=== PATIENT | male | born 1945 | race Caucasian/White ===

== ENCOUNTER 2021-08-03 16:23 | Inpatient (IN) ==
[2021-08-03] MEDS: SODIUM CHLORIDE 0.9% 1000ML 1,000 ML IV SCH (17:04)
[2021-08-03 17:23] LABS: INR 1.8 (0.9-1.1); Prothrombin Time 18.3 Seconds (9.0-12.0)
[2021-08-03 17:29] LABS: Basophils # (auto) 0.02 K/uL (0-0.2); Basophils % (auto) 0.4 %; Eosinophils # (auto) 0.12 K/uL (0-0.5); Eosinophils % (auto) 2.2 %; Hematocrit (blood only) 39.7 % (42-52); Hemoglobin 13.2 g/dL (14.0-18.0); Immature Granulocytes # (auto) 0.01 K/uL (0.00-0.02); Immature Granulocytes % (auto) 0.2 %; Lymphocytes # (auto) 1.27 K/uL (1.2-3.4); Lymphocytes % (auto) 22.9 %; Mean Corpuscular Hemoglobin 29.4 pg (25-34); Mean Corpuscular Hgb Conc 33.2 g/dL (32-36); Mean Corpuscular Volume 88.4 fL (80-100); Mean Platelet Volume 12.7 fL (7.4-10.4); Monocytes # (auto) 0.79 K/uL (0.11-0.59); Monocytes % (auto) 14.3 %; Neutrophils # (auto) 3.33 K/uL (1.4-6.5); Platelet Count 180 K/uL (130-400); RDW Coefficient of Variation 15.8 % (11.5-14.5); RDW Standard Deviation 51.1 fL (36.4-46.3); Red Blood Count 4.49 M/uL (4.7-6.1); White Blood Count 5.54 K/uL (4.8-10.8)
[2021-08-03 17:42] LABS: Troponin I High Sensitivity 10.6 pg/ml (0-20)
[2021-08-03 17:50] LABS: Albumin Globulin Ratio 1.5 (0.9-2); Albumin Level 4.5 gm/dl (3.4-5.0); BUN Creatinine Ratio 17.7 (10-20); Bilirubin,Total 0.6 mg/dl (0.2-1.0); Calcium 9.6 mg/dl (8.5-10.1); Est GFR (African American) 72.3 ml/min; Est GFR (Non-African American) 62.4 ml/min; Magnesium 1.3 mg/dl (1.7-2.4); Potassium 3.6 mmol/L (3.5-5.1); Total Protein 7.5 gm/dl (6.0-8.3)
[2021-08-03 18:23] LABS: Thyroid Stimulating Hormone 9.69 uIu/ml (0.300-4.500)
--- NOTE | 2021-08-03 18:23 | Emergency Department Note ---
History of Present Illness General Chief complaint: Fall Stated complaint: FALL, DIZZINESS, REF BY Time Seen by Provider: 08/03/21 16:38 Source: patient and family Mode of arrival: ambulatory Limitations: no limitations History of Present Illness Provider complaint: Dizziness, recurrent falls Maximum Pain Intensity: 8 This is a 75-year-old male presents emergency department complaining of dizziness recurrent falls, as well as recent head trauma. Patient states he sustained a fall 3 weeks ago while fishing and struck the back of his head on a rock. He is uncertain if he lost consciousness. Patient states since then he has felt more unsteady and off balance, and had accompanying headaches, frequent dizzy spells, and back pain. Patient states he does have a history of chronic back pain although it has been worse since the fall. He is followed least twice in the interim, has not sustained any further head trauma. He states ever since a fall with head injury 3 years ago he has been more chronically off balance. Patient states he does take Coumadin and his last INR was 2.8. He denies any recent change in medications or recent illness. Patient denies fevers, chills, vision changes, nausea, vomiting. Patient states he does have intermittent palpitations/fluttering in his chest and he has noticed that these seem to correlate with the episodes of dizziness. Per family at bedside he does have a history of dysrhythmia and does follow with cardiology. Patient denies any change in urine or stools. He denies any paresthesias. Patient states he has chronic right ankle swelling compared to the left from an injury many years ago. Pt seen during a time of high acuity and national emergency pandemic while wearing PPE. Home Medications Medication Instructions Recorded Confirmed Type acetaminophen 500 mg tablet 1,000 mg PO Q6H PRN tab 07/07/20 08/03/21 History albuterol sulfate 90 mcg/actuation 2 puff INHALATION Q6H PRN 07/07/20 08/03/21 History aerosol inhaler desonide 0.05 % topical cream 1 applic TOPICAL BID 07/07/20 08/03/21 History levothyroxine 50 mcg tablet 50 mcg PO QAM tab 07/07/20 08/03/21 History nitroglycerin 0.4 mg sublingual 0.4 mg SUBLINGUAL Q5M PRN 07/07/20 08/03/21 History tablet magnesium chloride 64 mg 64 mg PO BID tab 07/14/20 08/03/21 History (magnesium chloride) tablet,delayed release colchicine 0.6 mg capsule 0.6 mg PO BID PRN 09/01/20 08/03/21 History amiodarone 200 mg tablet 200 mg PO DAILY #90 tab 09/02/20 08/03/21 Rx lisinopril 10 mg tablet 10 mg PO DAILY #90 tab 11/24/20 08/03/21 Rx metoprolol succinate 100 mg 100 mg PO DAILY #90 tab 11/24/20 08/03/21 Rx tablet,extended release 24 hr metformin 1,000 mg tablet 1,000 mg PO BIDM #180 tab 02/17/21 08/03/21 Rx atorvastatin 40 mg tablet 40 mg PO DAILY #90 tab 05/19/21 08/03/21 Rx omeprazole 20 mg capsule,delayed 20 mg PO QAM #90 cap 05/19/21 08/03/21 Rx release triamterene 37.5 1 cap PO DAILY #90 cap 05/19/21 08/03/21 Rx mg-hydrochlorothiazide 25 mg capsule warfarin 5 mg tablet 5 mg PO QPM 08/03/21 08/03/21 History Allergies Allergy/AdvReac Type Severity Reaction Status Date / Time tramadol Allergy Mild ANAPHYLAXIS Verified 08/03/21 18:47 Penicillins Allergy Unknown CAN'T Verified 08/03/21 18:47 REMEMBER niacin AdvReac Rash, Verified 08/03/21 18:47 Itching TETANUS Allergy Mild ANAPHYLAXIS Uncoded 08/03/21 18:47 Past Med/Surg History Medical History Acquired hypothyroidism Cardiomyopathy Dyslipidemia, goal LDL below 100 GERD without esophagitis HTN, goal below 140/90 senior care current use of anticoagulant therapy Paroxysmal atrial fibrillation Rheumatic aortic stenosis SBE (subacute bacterial endocarditis) prophylaxis candidate Type 2 diabetes mellitus Surgical History History of cardiac catheterization History of colonoscopy History of hand surgery History of nasal septoplasty S/P aortic valve replacement S/P tonsillectomy and adenoidectomy Family History Sister Cancer lymphoma Father Heart disease Hypertension Mother Heart disease Hypertension Brother Myocardial infarction Stroke Other No family history of adverse response to anesthesia No family history of bleeding disorder Social History Smoking Status: Former smoker Tobacco Type: Cigarettes and Smokeless Tobacco (Dip or Chew) Age Started Using Tobacco: 10; packs per day: 2; Years Smoked: 30; Second Hand Exposure: No; Do You Dip or Chew Tobacco: No; Tobacco Cessation Education Requested by Patient: No Hx Alcohol Use: No Hx Substance Use: No Preferred Language: Maori Communication Ability: Effective Termite Treater Helper Required: No Beliefs That Will Affect Care: None Current Living Situation: Alone Other Information That Helps Us Care for You: No Feels Safe at Home: Yes Safety Concerns: Feels Safe At This Time Seatbelt Use: always Assistive Devices: Cane Assistive Devices Comment: Reading Review of Systems A total of 10 systems reviewed and were otherwise negative All systems reviewed & are unremarkable except as noted in HPI & below Physical Exam Vital Signs Vital Signs - 24 hr 08/03/21 16:26 08/03/21 17:00 08/03/21 17:30 Temperature 36.6 C Temperature Source Temporal Artery Scan Pulse Rate 69 68 60 Respiratory Rate 20 19 20 Respiratory Effort / Characteristics Non-Labored Spontaneous Respiratory Depth Normal Respiratory Pattern Regular Blood Pressure 154/79 H 142/70 H 158/69 H Blood Pressure Mean 104 94 98 Pulse Oximetry 96 96 96 Oxygen Delivery Method Room Air Sepsis Recent Fever Within 48 Hours No Sepsis New/Unexplained Change in Mental Status No Sepsis Action Taken by Nursing No Action Required 08/03/21 18:00 Temperature Temperature Source Pulse Rate 55 L Respiratory Rate 20 Respiratory Effort / Characteristics Respiratory Depth Respiratory Pattern Blood Pressure 174/82 H Blood Pressure Mean 112 Pulse Oximetry 97 Oxygen Delivery Method Sepsis Recent Fever Within 48 Hours Sepsis New/Unexplained Change in Mental Status Sepsis Action Taken by Nursing GENERAL: alert, well appearing, well nourished, no distress, non-toxic EYE EXAM: normal conjunctiva, PERRL and EOM's grossly intact OROPHARYNX: no exudate, no erythema, lips, buccal mucosa, and tongue normal and mucous membranes are moist NECK: supple, no nuchal rigidity, no adenopathy, non-tender LUNGS: Clear to auscultation. Normal chest wall mechanics, no w/r/r HEART: no murmurs, S1 normal and S2 normal CHEST WALL: No crepitus, no chest wall tender ABDOMEN: abdomen soft, non-tender, normo-active bowel sounds, no masses, no rebound or guarding. BACK: Back is symmetrical on inspection and there is no deformity, lower lumbar midline tenderness, no CVA tenderness. Pain with palpation over right paraspinal thoracic region. No overlying ecchymosis or evidence of trauma. SKIN: no rashes and no bruising UPPER EXTREMITIES: upper extremities are grossly normal. FROM, nml pulses b/l. LOWER EXTREMITIES: No pitting edema. FROM, nml pulses b/l. NEURO EXAM: Normal sensorium, cranial nerves II-XII grossly intact, normal speech, no gross weakness of arms, no gross weakness of legs. Gross sensation intact. Course Course 1914: Updated patient and family on results. Administered Medications Acetaminophen (Acetaminophen 325 Mg Tab) 650 mg PO Q4H PRN PRN Reason: Pain or Fever Stop: 09/02/21 22:28 Last Admin: 08/05/21 13:45 Dose: 650 mg Documented by: [id number] Admin: 08/05/21 08:40 Dose: 650 mg Documented by: [id number] Admin: 08/04/21 13:20 Dose: 650 mg Documented by: [id number] Admin: 08/04/21 08:45 Dose: 650 mg Documented by: [id number] Admin: 08/04/21 03:16 Dose: 650 mg Documented by: [id number] Amiodarone HCl (Amiodarone 200 Mg Tab) 200 mg PO DAILY ION Stop: 09/03/21 08:59 Last Admin: 08/05/21 08:09 Dose: 200 mg Documented by: [id number] Admin: 08/04/21 08:44 Dose: 200 mg Documented by: [id number] Atorvastatin Calcium (Atorvastatin 40 Mg Tab) 40 mg PO DAILY ION Stop: 09/03/21 08:59 Last Admin: 08/05/21 08:09 Dose: 40 mg Documented by: [id number] Admin: 08/04/21 08:44 Dose: 40 mg Documented by: [id number] Colchicine (Colchicine 0.6 Mg Tab) 0.6 mg PO BID PRN PRN Reason: GOUT SYMPTOMS Stop: 09/02/21 23:45 Last Admin: 08/05/21 08:09 Dose: 0.6 mg Documented by: [id number] Admin: 08/04/21 08:44 Dose: 0.6 mg Documented by: [id number] Insulin Aspart (Insulin Aspart Per Unit) 0 units SC ACHS ION Stop: 09/02/21 22:28 Last Admin: 08/05/21 17:14 Dose: Not Given Documented by: [id number] Admin: 08/05/21 11:38 Dose: Not Given Documented by: [id number] Admin: 08/05/21 07:20 Dose: Not Given Documented by: [id number] Admin: 08/04/21 20:53 Dose: Not Given Documented by: [id number] Admin: 08/04/21 16:30 Dose: Not Given Documented by: [id number] Admin: 08/04/21 11:31 Dose: Not Given Documented by: [id number] Admin: 08/04/21 08:05 Dose: Not Given Documented by: [id number] Admin: 08/03/21 23:37 Dose: Not Given Documented by: [id number] Cosigned by: [id number] Levothyroxine Sodium (Levothyroxine Sodium 50 Mcg Tablet) 50 mcg PO DAILYBB ION Stop: 09/03/21 06:29 Last Admin: 08/05/21 05:49 Dose: 50 mcg Documented by: [id number] Admin: 08/04/21 05:46 Dose: 50 mcg Documented by: [id number] Lidocaine (Lidocaine 5% 1 Patch) 1 patch TD QPM ION Stop: 09/02/21 23:44 Last Admin: 08/04/21 20:21 Dose: 1 patch Documented by: [id number] Admin: 08/03/21 23:59 Dose: 1 patch Documented by: [id number] Lisinopril (Lisinopril 10 Mg Tab) 10 mg PO DAILY ION Stop: 09/03/21 08:59 Last Admin: 08/05/21 08:09 Dose: 10 mg Documented by: [id number] Admin: 08/04/21 08:44 Dose: 10 mg Documented by: [id number] Magnesium Chloride (Magnesium Chloride W/Calcium 64mg Delayed Rel Tab) 64 mg PO BID ION Stop: 09/02/21 22:28 Last Admin: 08/05/21 08:09 Dose: 64 mg Documented by: [id number] Admin: 08/04/21 20:22 Dose: 64 mg Documented by: [id number] Admin: 08/04/21 08:44 Dose: 64 mg Documented by: [id number] Admin: 08/03/21 23:30 Dose: 64 mg Documented by: [id number] Metoprolol Succinate (Metoprolol Succ 50mg Ext Rel Tab) 50 mg PO DAILY [facility] Stop: 09/03/21 08:59 Last Admin: 08/05/21 08:12 Dose: Not Given Documented by: [id number] Admin: 08/04/21 08:44 Dose: Not Given Documented by: [id number] Miscellaneous (Remove Lidoderm Patch) 1 ea N/A DAILY@0900 [facility] Stop: 09/03/21 08:59 Last Admin: 08/05/21 08:15 Dose: 1 ea Documented by: [id number] Admin: 08/04/21 08:46 Dose: 1 ea Documented by: [id number] Warfarin Sodium (Warfarin Sod 5 Mg Tab) 5 mg PO DAILY@1600 [facility] Stop: 09/03/21 15:59 Last Admin: 08/05/21 16:35 Dose: 5 mg Documented by: [id number] Admin: 08/04/21 16:34 Dose: 5 mg Documented by: [id number] Discontinued Medications Amlodipine Besylate (Amlodipine Besylate 5 Mg Tab) 10 mg PO NOW ONE Stop: 08/05/21 11:15 Last Admin: 08/05/21 11:26 Dose: 10 mg Documented by: [id number] Sodium Chloride (Nss 1000ml) 1,000 mls @ 125 mls/hr IV .Q8H [facility] Stop: 09/02/21 16:59 Last Infusion: 08/05/21 08:33 Dose: 0 mls/hr Documented by: [id number] Admin: 08/05/21 08:11 Dose: 125 mls/hr Documented by: [id number] Infusion: 08/05/21 08:11 Dose: 125 mls/hr Documented by: [id number] Admin: 08/05/21 00:42 Dose: 125 mls/hr Documented by: [id number] Infusion: 08/05/21 00:34 Dose: 125 mls/hr Documented by: [id number] Admin: 08/04/21 16:34 Dose: 125 mls/hr Documented by: [id number] Infusion: 08/04/21 16:34 Dose: 125 mls/hr Documented by: [id number] Admin: 08/04/21 08:44 Dose: 125 mls/hr Documented by: [id number] Infusion: 08/04/21 08:44 Dose: 125 mls/hr Documented by: [id number] Admin: 08/04/21 01:17 Dose: 125 mls/hr Documented by: [id number] Infusion: 08/04/21 01:04 Dose: 125 mls/hr Documented by: [id number] Admin: 08/03/21 17:04 Dose: 125 mls/hr Documented by: [id number] Magnesium Sulfate/Dextrose (Magnesium Sulfate / D5w) 1 gm in 100 mls @ 100 mls/hr IV Q1H ION Stop: 08/03/21 19:53 Last Infusion: 08/03/21 22:50 Dose: 0 mls/hr Documented by: [id number] Admin: 08/03/21 20:21 Dose: 100 mls/hr Documented by: [id number] Infusion: 08/03/21 19:59 Dose: 0 mls/hr Documented by: [id number] Admin: 08/03/21 18:49 Dose: 100 mls/hr Documented by: [id number] Ioversol (Optiray 320 100ml) 93 ml IV ONCE ONE Stop: 08/03/21 18:25 Last Admin: 08/03/21 18:25 Dose: 93 ml Documented by: [id number] Warfarin Sodium (Warfarin Sod 5 Mg Tab) 5 mg PO NOW ONE Stop: 08/03/21 20:56 Last Admin: 08/03/21 22:38 Dose: 5 mg Documented by: [id number] Medical Decision Making Differential Diagnosis Differential diagnosis includes etiologies such as benign positional vertigo, dehydration, hypovolemia, anemia, tumor, infection, hypoglycemia, electrolyte abnormalities, cardiac sources, intracerebral event, toxicologic, neurologic, as well as others were entertained. Medical Records Attestation: I reviewed the patient's medical records. Home Medications Current Medication List: was personally reviewed by me Laboratory Data Attestation: I reviewed the patient's lab results. Result diagrams: 08/05/21 07:28 08/05/21 07:28 Lab Results 08/03/21 08/03/21 08/03/21 Range/Units 16:45 16:45 16:45 WBC 5.54 (4.8-10.8) K/uL RBC 4.49 L (4.7-6.1) M/uL Hgb 13.2 L (14.0-18.0) g/dL Hct 39.7 L (42-52) % MCV 88.4 (80-100) fL MCH 29.4 (25-34) pg MCHC 33.2 (32-36) g/dL RDW Std Deviation 51.1 H (36.4-46.3) fL RDW Coeff of [place] 15.8 H (11.5-14.5) % Plt Count 180 (130-400) K/uL MPV 12.7 H (7.4-10.4) fL Immature Gran % (Auto) 0.2 % Neut % (Auto) 60.0 % Lymph % (Auto) 22.9 % [place] % (Auto) 14.3 % Eos % (Auto) 2.2 % Baso % (Auto) 0.4 % Neut # (Auto) 3.33 (1.4-6.5) K/uL Lymph # (Auto) 1.27 (1.2-3.4) K/uL [place] # (Auto) 0.79 H (0.11-0.59) K/uL Eos # (Auto) 0.12 (0-0.5) K/uL Baso # (Auto) 0.02 (0-0.2) K/uL Immature Gran # (Auto) 0.01 (0.00-0.02) K/uL PT 18.3 H (9.0-12.0) Seconds INR 1.8 H (0.9-1.1) Sodium 139 (136-145) mmol/L Potassium 3.6 (3.5-5.1) mmol/L Chloride 102 (98-107) mmol/L Carbon Dioxide 26 (21-32) mmol/L Anion Gap 11 (3-11) BUN 20 (6-23) mg/dl Creatinine 1.13 (0.6-1.4) mg/dl Est Cr Clr Drug Dosing 59.0 ml/min Est GFR ( Amer) 72.3 ml/min Est GFR (Non-Af Amer) 62.4 ml/min BUN/Creatinine Ratio 17.7 (10-20) Glucose 106 H (70-99(Fasting)) mg/dl Calcium 9.6 (8.5-10.1) mg/dl Magnesium 1.3 L (1.7-2.4) mg/dl Total Bilirubin 0.6 (0.2-1.0) mg/dl AST 68 H (13-39) U/L ALT 87 H (7-52) U/L Alkaline Phosphatase 66 (34-104) U/L Troponin I High Sens 10.6 (0-20) pg/ml Total Protein 7.5 (6.0-8.3) gm/dl Albumin 4.5 (3.4-5.0) gm/dl Globulin 3.0 (2.5-4.0) gm/dl Albumin/Globulin Ratio 1.5 (0.9-2) Lipase 56 (11-82) U/L TSH (0.300-4.500) uIu/ml Free T4 (0.61-1.60) ng/dl Anaplasma Smear Babesia Smear Lyme Disease IgG Ab (Negative) Lyme Disease IgM Ab (Negative) 08/03/21 08/03/21 08/03/21 Range/Units 16:45 16:45 17:08 WBC (4.8-10.8) K/uL RBC (4.7-6.1) M/uL Hgb (14.0-18.0) g/dL Hct (42-52) % MCV (80-100) fL MCH (25-34) pg MCHC (32-36) g/dL RDW Std Deviation (36.4-46.3) fL RDW Coeff of [place] (11.5-14.5) % Plt Count (130-400) K/uL MPV (7.4-10.4) fL Immature Gran % (Auto) % Neut % (Auto) % Lymph % (Auto) % [place] % (Auto) % Eos % (Auto) % Baso % (Auto) % Neut # (Auto) (1.4-6.5) K/uL Lymph # (Auto) (1.2-3.4) K/uL [place] # (Auto) (0.11-0.59) K/uL Eos # (Auto) (0-0.5) K/uL Baso # (Auto) (0-0.2) K/uL Immature Gran # (Auto) (0.00-0.02) K/uL PT (9.0-12.0) Seconds INR (0.9-1.1) Sodium (136-145) mmol/L Potassium (3.5-5.1) mmol/L Chloride (98-107) mmol/L Carbon Dioxide (21-32) mmol/L Anion Gap (3-11) BUN (6-23) mg/dl Creatinine (0.6-1.4) mg/dl Est Cr Clr Drug Dosing ml/min Est GFR ( Amer) ml/min Est GFR (Non-Af Amer) ml/min BUN/Creatinine Ratio (10-20) Glucose (70-99(Fasting)) mg/dl Calcium (8.5-10.1) mg/dl Magnesium (1.7-2.4) mg/dl Total Bilirubin (0.2-1.0) mg/dl AST (13-39) U/L ALT (7-52) U/L Alkaline Phosphatase (34-104) U/L Troponin I High Sens (0-20) pg/ml Total Protein (6.0-8.3) gm/dl Albumin (3.4-5.0) gm/dl Globulin (2.5-4.0) gm/dl Albumin/Globulin Ratio (0.9-2) Lipase (11-82) U/L TSH 9.690 H (0.300-4.500) uIu/ml Free T4 0.70 (0.61-1.60) ng/dl Anaplasma Smear See Comment Babesia Smear See Comment Lyme Disease IgG Ab Negative (Negative) Lyme Disease IgM Ab Negative (Negative) Imaging Data Radiologist's Impression: Abdomen/Pelvis CT 08/03/21 16:56 CT OF THE ABDOMEN AND PELVIS WITH CONTRAST CLINICAL HISTORY: Trauma. COMPARISON STUDY: None. TECHNIQUE: Following IV administration of 94 mL of Optiray, axial images of the abdomen and pelvis were obtained from the lung bases to the proximal femurs. Images were reviewed in the axial, sagittal, and coronal planes. IV contrast was administered without complication. Automated exposure control was utilized for the study. A dose lowering technique was utilized adhering to the principles of ALARA. FINDINGS: No hemoperitoneum or pneumoperitoneum is present. There is no evidence for traumatic injury to the liver, spleen, adrenal glands, kidneys or pancreas. There is no hydronephrosis. No biliary or pancreatic ductal dilatation is p resent. Several subcentimeter hypodense hepatic lesions favor cysts. Caliber and wall thickness of small and large bowel are normal. No acute lumbar spine or pelvic fracture is identified. Metallic radiodensity within the subcutaneous tissues of the anterior abdominal wall is incidentally noted. IMPRESSION: No acute traumatic findings within the abdomen or pelvis. ACT 112: Negative or not required by law. Electronically signed by: Venkat Sims M.D. 08/03/2021 7:[address] 08/03/21 16:56 CT OF THE CHEST WITH IV CONTRAST CLINICAL HISTORY: trauma COMPARISON STUDY: No previous studies for comparison. TECHNIQUE: Following IV administration of 94 mL of Optiray, helical axial images of the chest were obtained. Sagittal and coronal reconstructions were viewed as well as maximal intensity projections on an independent 3-D workstation. Automated exposure control was utilized for the study. A dose lowering technique was utilized adhering to the principles of ALARA. FINDINGS: There is no evidence for traumatic injury to the thoracic aorta. Cardiomegaly is noted. There are median sternotomy wires and a prosthetic aortic valve. No pericardial effusion is present. There is no thoracic lymphadenopathy. No pneumothorax, pulmonary contusion or pleural effusion is noted. No acute rib or thoracic spine fracture is noted. Abdomen and pelvis CT will be reported separately. IMPRESSION: No acute traumatic findings within the chest. ACT 112: Negative or not required by law. Electronically signed by: Venkat Sims M.D. 08/03/2021 7:[address] 08/03/21 16:56 CT lumbar spine w con CLINICAL HISTORY: trauma COMPARISON STUDY: No previous studies for comparison. TECHNIQUE: Axial images of the lumbar spine were obtained following intravenous injection of 94 cc of Optiray 320 IV. Sagittal and coronal reconstructions were viewed. Automated exposure control was utilized for the study. A dose lowering technique was utilized adhering to the principles of ALARA. FINDINGS: Alignment of the lumbar spine is anatomic. No acute lumbar spine fracture. There is moderate multilevel facet arthrosis. Central canal and neural foramen are suboptimally assessed by CT. Please note that the CT of the abdomen and pelvis will be reported separately. IMPRESSION: No acute lumbar spine fracture or subluxation. ACT 112: Negative or not required by law. Electronically signed by: Venkat Sims M.D. 08/03/2021 7:[address] 08/03/21 16:56 CT thoracic spine w con CLINICAL HISTORY: trauma COMPARISON STUDY: No previous studies for comparison. TECHNIQUE: Axial images of the thoracic spine were obtained following intravenous injection of 94 cc Optiray 320 IV. Sagittal and coronal reconstructions were viewed. Automated exposure control was utilized for the study. A dose lowering technique was utilized adhering to the principles of ALARA. FINDINGS: Alignment of the thoracic spine is anatomic. Vertebral body heights are maintained. There is no thoracic spine fracture. Multiple Schmorl's nodes. Mild disc space narrowing is noted with moderate anterior osteophytosis. Chest CT will be reported separately. IMPRESSION: No acute thoracic spine fracture or subluxation. ACT 112: Negative or not required by law. Electronically signed by: Venkat Sims M.D. 08/03/2021 7:[address] 08/03/21 16:57 CT OF THE CERVICAL SPINE WITHOUT CONTRAST CLINICAL HISTORY: trauma COMPARISON STUDY: No previous studies for comparison. TECHNIQUE: Helical axial images of the cervical spine were obtained without IV contrast. Sagittal and coronal reconstructions were viewed. Automated exposure control was utilized for the study. A dose lowering technique was utilized adhering to the principles of ALARA. FINDINGS: Alignment of the cervical spine is anatomic. Vertebral body heights are maintained. No acute cervical spine fracture or subluxation is present. There is no prevertebral edema. Facet joints are intact. Severe multilevel degenerative disc disease and facet arthrosis is noted. There is partial fusion of C2 on C3. Upper rib anomalies are incidentally noted. IMPRESSION: No acute cervical spine fracture or subluxation. ACT 112: Negative or not required by law. Electronically signed by: Venkat Sims M.D. 08/03/2021 6:[address] 08/03/21 16:57 CT OF THE HEAD WITHOUT CONTRAST CLINICAL HISTORY: trauma COMPARISON STUDY: MRI of the brain February 03, 2021. TECHNIQUE: Helical axial images of the head were obtained without IV contrast. Automated exposure control was utilized for the study. A dose lowering te chnique was utilized adhering to the principles of ALARA. FINDINGS: No acute intracranial hemorrhage, midline shift or mass effect is present. White matter hypodensity suggests small vessel disease. The ventricular system is unremarkable. The basal cisterns are patent. No extra-axial collections are present. There are no findings to suggest acute dural sinus thrombosis or acute territorial infarct. No significant calvarial abnormalities are present. Nasal septum is perforated. IMPRESSION: 1. No acute intracranial findings. 2. No acute calvarial fracture. ACT 112: Negative or not required by law. Electronically signed by: Venkat Sims M.D. 08/03/2021 6:53 PM ECG Data Attestation: I personally reviewed and interpreted this ECG as follows: Indication: + palpitations Rate (beats per minute): 59 Rhythm: + sinus bradycardia ECG Intervals/blocks: + First degree AV block, + IVCD and + Prolonged QT ECG [place]: + Normal ECG ST segments: + Nonspecific ST abnormalities MDM Narrative An order was placed for continuous cardiac monitoring. The monitor shows a rate of _52_ with _sinus bradycardia_ rhythm. This is a 75 yo male who presents to the Er with syncope and recurrent dizziness that has been going on for 3 weeks. Labs drawn and sent and revealed hypomagnesemia. VS stable. No evidence of infection. No ZEKE. Mild transaminitis likely from medications. We discussed all results at bedside. No evidence of trauma despite reported CHI after syncope 3 weeks ago and persistent back pain. Case discussed with hospitalist for additional evaluation and treatment. IV magnesium repletion started while in the ER. INR subtherapeutic. Impression & Plan Dizziness, Syncope, Hypomagnesemia, Subtherapeutic international normalized ratio (INR) Discharge Plan Visit Data Chief Complaint: Fall Stated Complaint: FALL, DIZZINESS, REF BY ED Provider: Tisha Thurman Discharge Problem: Dizziness, Syncope, Hypomagnesemia, Subtherapeutic international normalized ratio (INR) Patient Disposition: Admitted As Inpatient Discharge Instructions Interventions: ED Discharge Assessment Last Done: 08/03/21 21:50 Discharge Problem: Syncope Qualifiers: Syncope type: unspecified Qualified Code(s): R55 - Syncope and collapse
[2021-08-03] MEDS ORDERED: OPTIRAY 320 100ml IV ONE (18:24)
[2021-08-03 18:29] LABS: Lyme Ab IgG w/WB Rflx Negative (Negative); Lyme Ab IgM w/WB Rflx Negative (Negative)
[2021-08-03] MEDS: MAGNESIUM SULFATE / D5W 1 GM/100 ML BAG IV SCH ×2 (18:49→20:21)
--- NOTE | 2021-08-03 18:55 | CT Scan Report ---
CT OF THE HEAD WITHOUT CONTRAST CLINICAL HISTORY: trauma COMPARISON STUDY: MRI of the brain February 03, 2021. TECHNIQUE: Helical axial images of the head were obtained without IV contrast. Automated exposure con trol was utilized for the study. A dose lowering technique was utilized adhering to the principles o f ALARA. FINDINGS: No acute intracranial hemorrhage, midline shift or mass effect is present. White matter hyp odensity suggests small vessel disease. The ventricular system is unremarkable. The basal cisterns ar e patent. No extra-axial collections are present. There are no findings to suggest acute dural sinus thrombosis or acute territorial infarct. No significant calvarial abnormalities are present. Nasal se ptum is perforated. IMPRESSION: 1. No acute intracranial findings. 2. No acute calvarial fracture. ACT 112: Negative or not required by law. Electronically signed by: Venkat Sims M.D. 08/03/2021 6:53 PM
--- NOTE | 2021-08-03 18:59 | CT Scan Report ---
CT OF THE CERVICAL SPINE WITHOUT CONTRAST CLINICAL HISTORY: trauma COMPARISON STUDY: No previous studies for comparison. TECHNIQUE: Helical axial images of the cervical spine were obtained without IV contrast. Sagittal a nd coronal reconstructions were viewed. Automated exposure control was utilized for the study. A do se lowering technique was utilized adhering to the principles of ALARA. FINDINGS: Alignment of the cervical spine is anatomic. Vertebral body heights are maintained. No acut e cervical spine fracture or subluxation is present. There is no prevertebral edema. Facet joints are intact. Severe multilevel degenerative disc disease and facet arthrosis is noted. There is partial fusion of C2 on C3. Upper rib anomalies are incidentally noted. IMPRESSION: No acute cervical spine fracture or subluxation. ACT 112: Negative or not required by law. Electronically signed by: Venkat Sims M.D. 08/03/2021 6:57 PM
--- NOTE | 2021-08-03 19:03 | CT Scan Report ---
CT OF THE CHEST WITH IV CONTRAST CLINICAL HISTORY: trauma COMPARISON STUDY: No previous studies for comparison. TECHNIQUE: Following IV administration of 94 mL of Optiray, helical axial images of the chest were o btained. Sagittal and coronal reconstructions were viewed as well as maximal intensity projections o n an independent 3-D workstation. Automated exposure control was utilized for the study. A dose low ering technique was utilized adhering to the principles of ALARA. FINDINGS: There is no evidence for traumatic injury to the thoracic aorta. Cardiomegaly is noted. Th ere are median sternotomy wires and a prosthetic aortic valve. No pericardial effusion is present. Th ere is no thoracic lymphadenopathy. No pneumothorax, pulmonary contusion or pleural effusion is noted . No acute rib or thoracic spine fracture is noted. Abdomen and pelvis CT will be reported separately . IMPRESSION: No acute traumatic findings within the chest. ACT 112: Negative or not required by law. Electronically signed by: Venkat Sims M.D. 08/03/2021 7:01 PM
--- NOTE | 2021-08-03 19:04 | CT Scan Report ---
CT thoracic spine w con CLINICAL HISTORY: trauma COMPARISON STUDY: No previous studies for comparison. TECHNIQUE: Axial images of the thoracic spine were obtained following intravenous injection of 94 cc Optiray 320 IV. Sagittal and coronal reconstructions were viewed. Automated exposure control was util ized for the study. A dose lowering technique was utilized adhering to the principles of ALARA. FINDINGS: Alignment of the thoracic spine is anatomic. Vertebral body heights are maintained. There i s no thoracic spine fracture. Multiple Schmorl's nodes. Mild disc space narrowing is noted with moder ate anterior osteophytosis. Chest CT will be reported separately. IMPRESSION: No acute thoracic spine fracture or subluxation. ACT 112: Negative or not required by law. Electronically signed by: Venkat Sims M.D. 08/03/2021 7:02 PM
[2021-08-03 19:10] LABS: T4 Free Thyroxine 0.7 ng/dl (0.61-1.60)
--- NOTE | 2021-08-03 19:15 | CT Scan Report ---
CT lumbar spine w con CLINICAL HISTORY: trauma COMPARISON STUDY: No previous studies for comparison. TECHNIQUE: Axial images of the lumbar spine were obtained following intravenous injection of 94 cc of Optiray 320 IV. Sagittal and coronal reconstructions were viewed. Automated exposure control was uti lized for the study. A dose lowering technique was utilized adhering to the principles of ALARA. FINDINGS: Alignment of the lumbar spine is anatomic. No acute lumbar spine fracture. There is moderat e multilevel facet arthrosis. Central canal and neural foramen are suboptimally assessed by CT. Pleas e note that the CT of the abdomen and pelvis will be reported separately. IMPRESSION: No acute lumbar spine fracture or subluxation. ACT 112: Negative or not required by law. Electronically signed by: Venkat Sims M.D. 08/03/2021 7:13 PM
--- NOTE | 2021-08-03 19:15 | CT Scan Report ---
CT OF THE ABDOMEN AND PELVIS WITH CONTRAST CLINICAL HISTORY: Trauma. COMPARISON STUDY: None. TECHNIQUE: Following IV administration of 94 mL of Optiray, axial images of the abdomen and pelvis we re obtained from the lung bases to the proximal femurs. Images were reviewed in the axial, sagittal, and coronal planes. IV contrast was administered without complication. Automated exposure control wa s utilized for the study. A dose lowering technique was utilized adhering to the principles of ALARA . FINDINGS: No hemoperitoneum or pneumoperitoneum is present. There is no evidence for traumatic injury to the liver, spleen, adrenal glands, kidneys or pancreas. There is no hydronephrosis. No biliary or pancreatic ductal dilatation is present. Several subcentimeter hypodense hepatic lesions favor cysts . Caliber and wall thickness of small and large bowel are normal. No acute lumbar spine or pelvic fra cture is identified. Metallic radiodensity within the subcutaneous tissues of the anterior abdominal wall is incidentally noted. IMPRESSION: No acute traumatic findings within the abdomen or pelvis. ACT 112: Negative or not required by law. Electronically signed by: Venkat Sims M.D. 08/03/2021 7:12 PM
--- NOTE | 2021-08-03 19:43 | History & Physical Report ---
Date of Service August 03, 2021 Assessment & Plan (1) Multiple falls: Plan: - Ongoing issues for several years, with increased falls this month. Associated with dizziness, fatigue, palpitations--may be related to 1st degree AV block. Also noted to have PACs and PVCs. 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 - Will have cardiology see him regarding palpitations and bradycardia. - PT and OT to evaluate. - All imaging today negative for any fracture/acute bleeds. (2) First degree AV block: Plan: - Seen on previous EKGs over the past year, HR 40-50s here. Wore an event monitor in August 2020 and had episodes of suinus bradycardia then with HR to 20- 30s. - Consulted cardiology, also testing for anaplasmosis and Lyme--both negative. - Will reduce tomorrow's metoprolol dose from 100 to 50 mg. - Admitted to PCU. (3) Type 2 diabetes mellitus: Plan: - Hold metformin. - Accuchecks ACHS with SSI. - A1c in AM. (4) Elevated LFTs: Plan: - AST 68, ALT 87, ALT only slightly elevated from labs drawn last November. - Anaplasmosis, Lyme negative. Patient has been amiodarone since last August. Not volume overloaded/no history of HF. ? blood transfusion. - Continue to follow on AM labs. (5) Hypomagnesemia: Plan: - 1.3, replete with IV Mg x2, recheck in AM. - Continue magnesium supplementation. (6) HTN, goal below 140/90: Plan: - Holding HCTZ given low magnesium; continue lisinopril. (7) Paroxysmal atrial fibrillation: Plan: - On Coumadin for this as well as mechanical aortic valve with INR goal 2.0-3.0 per most recent cardiology note (1.8 today). - Continue amiodarone 200 mg daily, continue metoprolol but will reduce dose to 50 mg tomorrow AM given bradycardia. (8) Cardiomyopathy: Plan: - Echocardiogram from February 2021: LVEF 40% to 45% with mild global hypokinesis, septal motion consistent with bundle branch block, and prosthetic aortic valve with acceptable transvalvular gradient/velocity. (9) S/P aortic valve replacement: Plan: - Coumadin 5mg daily with INR goal 2.0-3.0, 1.8 today. (10) Acquired hypothyroidism: Plan: - Continue levothyroxine 50 mcg daily. - TSH 9.69, free T4 0.70. (11) GERD without esophagitis: Plan: - Takes omeprazole only PRN; holding for now due to low mag, would recommend using Pepcid in future to avoid low magnesium. Plan: - Admit to PCU given bradycardia with 1st degee AV block - SCDs, warfarin for VTE ppx. - Full Code. History of Present Illness Chief Complaint: frequent falls associated with palpitations Primary Care Provider: Jeanette Ring DO Josh Shaw is a 75 y/o male with a PMH of hypertension, hyperlipidemia, rheumatic heart disease s/p mechanical AVR, DM2, chronic LBBB, cardiomyopahty, and paroxysmal a fib on Coumadin who presents today for initial frequent falls. Patient had a fall about 3 weeks ago while he was fishing, he actually believes he had passed out and hit his head. Prior to falling, he had felt fatigued, dizzy and had palpitations. He did not seek treatment at that time. Since then, he he has had several more falls, all precipitated by feeling like his heart was fluttering, dizzy, and off balance like he is walking on a boat. With these falls, there were no traumas and he did not hit his head or lose consciousness. Upon speaking to patient, it seems that these falls have been ongoing on the occasion for several years, but of been occurring more frequently over the past 3 weeks, which is caused some concern. In ED, bradycardic with HR in 50s, hypertensive. Labs significant for Hgb 13.2 (stable), PT 18.3, INR 1.8, mag 1.3, AST 68, ALT 87, TSH 9.69. Spine CT, head CT, chest CT, CT a/p all unremarkable. Allergies Allergy/AdvReac Type Severity Reaction Status Date / Time tramadol Allergy Mild ANAPHYLAXIS Verified 08/03/21 18:47 Penicillins Allergy Unknown CAN'T Verified 08/03/21 18:47 REMEMBER niacin AdvReac Rash, Verified 08/03/21 18:47 Itching TETANUS Allergy Mild ANAPHYLAXIS Uncoded 08/03/21 18:47 Home Medications Medication Instructions Recorded Confirmed Type acetaminophen 500 mg tablet 1,000 mg PO Q6H PRN tab 07/07/20 08/03/21 History albuterol sulfate 90 mcg/actuation 2 puff INHALATION Q6H PRN 07/07/20 08/03/21 History aerosol inhaler desonide 0.05 % topical cream 1 applic TOPICAL BID 07/07/20 08/03/21 History levothyroxine 50 mcg tablet 50 mcg PO QAM tab 07/07/20 08/03/21 History nitroglycerin 0.4 mg sublingual 0.4 mg SUBLINGUAL Q5M PRN 07/07/20 08/03/21 History tablet magnesium chloride 64 mg 64 mg PO BID tab 07/14/20 08/03/21 History (magnesium chloride) tablet,delayed release colchicine 0.6 mg capsule 0.6 mg PO BID PRN 09/01/20 08/03/21 History amiodarone 200 mg tablet 200 mg PO DAILY #90 tab 09/02/20 08/03/21 Rx lisinopril 10 mg tablet 10 mg PO DAILY #90 tab 11/24/20 08/03/21 Rx metoprolol succinate 100 mg 100 mg PO DAILY #90 tab 11/24/20 08/03/21 Rx tablet,extended release 24 hr metformin 1,000 mg tablet 1,000 mg PO BIDM #180 tab 02/17/21 08/03/21 Rx atorvastatin 40 mg tablet 40 mg PO DAILY #90 tab 05/19/21 08/03/21 Rx omeprazole 20 mg capsule,delayed 20 mg PO QAM #90 cap 05/19/21 08/03/21 Rx release triamterene 37.5 1 cap PO DAILY #90 cap 05/19/21 08/03/21 Rx mg-hydrochlorothiazide 25 mg capsule warfarin 5 mg tablet 5 mg PO QPM 08/03/21 08/03/21 History Past Med/Surg History Medical History Acquired hypothyroidism Cardiomyopathy Dyslipidemia, goal LDL below 100 GERD without esophagitis HTN, goal below 140/90 longterm current use of anticoagulant therapy Paroxysmal atrial fibrillation Rheumatic aortic stenosis SBE (subacute bacterial endocarditis) prophylaxis candidate Type 2 diabetes mellitus Surgical History History of cardiac catheterization History of colonoscopy History of hand surgery History of nasal septoplasty S/P aortic valve replacement S/P tonsillectomy and adenoidectomy Family History Sister Cancer lymphoma Father Heart disease Hypertension Mother Heart disease Hypertension Brother Myocardial infarction Stroke Other No family history of adverse response to anesthesia No family history of bleeding disorder Social History Smoking Status: Former smoker Tobacco Type: Cigarettes and Smokeless Tobacco (Dip or Chew) Age Started Using Tobacco: 10; packs per day: 2; Years Smoked: 30; Second Hand Exposure: No; Do You Dip or Chew Tobacco: No; Tobacco Cessation Education Requested by Patient: No Hx Alcohol Use: No Hx Substance Use: No Preferred Language: Italian Communication Ability: Effective Mid Level Business Analyst Required: No Beliefs That Will Affect Care: None Current Living Situation: Alone Other Information That Helps Us Care for You: No Feels Safe at Home: Yes Safety Concerns: Feels Safe At This Time Seatbelt Use: always Assistive Devices: Cane Assistive Devices Comment: Reading Review of Systems Review of Systems: Constitutional: intermittent fatigue, dizziness precipitating falls; No fever/chills, weakness, myalgias, anorexia, night sweats Eyes: No diplopia, no worsening or blurred vision ENT: intermittent ringing in ears both at rest and prior to falls; hearing loss without acute change; no trouble swallowing Respiratory: No cough, sputum, dyspnea at rest or on exertion Cardiovascular: palpitations preceding falls; occasional, brief moments of chest tightness that occur at rest Abdomen: No pain, nausea, vomiting, diarrhea or constipation : Denies dysuria, hematuria, increased urgency/frequency, urinary retention Musculoskeletal: No joint pain, calf pain, swelling Neurologic: No weakness, numbness/tingling, or balance problems Psychiatric: No anxiety or depression Skin: No rash or itch Physical Exam Physical Exam: General: awake, alert, no apparent distress Head: Normocephalic, atraumatic ENT: PERRL, EOMI, no pharyngeal exudate, mucous membranes moist Chest: Clear to auscultation, on room air, no adventitious breath sounds Cardiac: Regular rate and rhythm, no murmur, no JVD, normal peripheral pulses, good capillary refill Abdominal: NABS x 4 quadrants, soft, nontender to palpation, no rebound, guarding or tenderness Extremities: Normal inspection, no peripheral edema or erythema, calfs nontender to palpation Psych: Normal mood and affect Neuro: AAO x 3, strength intact bilaterally and rated 5/5, no motor deficits, speech is clear, no peripheral sensory deficits Skin: no rash or erythema Results & Data Results & Data ([facility]) Vital Signs (Past 12 Hours) Vital Signs Temp Pulse Resp BP Pulse Ox 08/03/21 18:00 55 L 20 174/82 H 97 08/03/21 17:30 60 20 158/69 H 96 08/03/21 17:00 68 19 142/70 H 96 08/03/21 16:26 36.6 C 69 20 154/79 H 96 Laboratory Results Abnormal lab results 08/03/21 08/03/21 08/03/21 Range/Units 16:45 16:45 16:45 RBC 4.49 L (4.7-6.1) M/uL Hgb 13.2 L (14.0-18.0) g/dL Hct 39.7 L (42-52) % RDW Std Deviation 51.1 H (36.4-46.3) fL RDW Coeff of [place] 15.8 H (11.5-14.5) % MPV 12.7 H (7.4-10.4) fL [place] # (Auto) 0.79 H (0.11-0.59) K/uL PT 18.3 H (9.0-12.0) Seconds INR 1.8 H (0.9-1.1) Glucose 106 H (70-99(Fasting)) mg/dl Magnesium 1.3 L (1.7-2.4) mg/dl AST 68 H (13-39) U/L ALT 87 H (7-52) U/L TSH (0.300-4.500) uIu/ml 08/03/21 Range/Units 16:45 RBC (4.7-6.1) M/uL Hgb (14.0-18.0) g/dL Hct (42-52) % RDW Std Deviation (36.4-46.3) fL RDW Coeff of [place] (11.5-14.5) % MPV (7.4-10.4) fL [place] # (Auto) (0.11-0.59) K/uL PT (9.0-12.0) Seconds INR (0.9-1.1) Glucose (70-99(Fasting)) mg/dl Magnesium (1.7-2.4) mg/dl AST (13-39) U/L ALT (7-52) U/L TSH 9.690 H (0.300-4.500) uIu/ml Diagnostic Findings Abdomen/Pelvis CT 08/03/21 16:56 CT OF THE ABDOMEN AND PELVIS WITH CONTRAST CLINICAL HISTORY: Trauma. COMPARISON STUDY: None. TECHNIQUE: Following IV administration of 94 mL of Optiray, axial images of the abdomen and pelvis were obtained from the lung bases to the proximal femurs. Images were reviewed in the axial, sagittal, and coronal planes. IV contrast was administered without complication. Automated exposure control was utilized for the study. A dose lowering technique was utilized adhering to the principles of ALARA. FINDINGS: No hemoperitoneum or pneumoperitoneum is present. There is no evidence for traumatic injury to the liver, spleen, adrenal glands, kidneys or pancreas. There is no hydronephrosis. No biliary or pancreatic ductal dilatation is present. Several subcentimeter hypodense hepatic lesions favor cysts. Caliber and wall thickness of small and large bowel are normal. No acute lumbar spine or pelvic fracture is identified. Metallic radiodensity within the subcutaneous tissues of the anterior abdominal wall is incidentally noted. IMPRESSION: No acute traumatic findings within the abdomen or pelvis. ACT 112: Negative or not required by law. Electronically signed by: Venkat Sims M.D. 08/03/2021 7:[address] 08/03/21 16:56 CT OF THE CHEST WITH IV CONTRAST CLINICAL HISTORY: trauma COMPARISON STUDY: No previous studies for comparison. TECHNIQUE: Following IV administration of 94 mL of Optiray, helical axial images of the chest were obtained. Sagittal and coronal reconstructions were viewed as well as maximal intensity projections on an independent 3-D workstation. Automated exposure control was utilized for the study. A dose lowering technique was utilized adhering to the principles of ALARA. FINDINGS: There is no evidence for traumatic injury to the thoracic aorta. Cardiomegaly is noted. There are median sternotomy wires and a prosthetic aortic valve. No pericardial effusion is present. There is no thoracic lymphadenopathy. No pneumothorax, pulmonary contusion or pleural effusion is noted. No acute rib or thoracic spine fracture is noted. Abdomen and pelvis CT will be reported separately. IMPRESSION: No acute traumatic findings within the chest. ACT 112: Negative or not required by law. Electronically signed by: Venkat Sims M.D. 08/03/2021 7:[address] 08/03/21 16:56 CT lumbar spine w con CLINICAL HISTORY: trauma COMPARISON STUDY: No previous studies for comparison. TECHNIQUE: Axial images of the lumbar spine were obtained following intravenous injection of 94 cc of Optiray 320 IV. Sagittal and coronal reconstructions were viewed. Automated exposure control was utilized for the study. A dose lowering technique was utilized adhering to the principles of ALARA. FINDINGS: Alignment of the lumbar spine is anatomic. No acute lumbar spine fracture. There is moderate multilevel facet arthrosis. Central canal and neural foramen are suboptimally assessed by CT. Please note that the CT of the abdomen and pelvis will be reported separately. IMPRESSION: No acute lumbar spine fracture or subluxation. ACT 112: Negative or not required by law. Electronically signed by: Venkat Sims M.D. 08/03/2021 7:[address] 08/03/21 16:56 CT thoracic spine w con CLINICAL HISTORY: trauma COMPARISON STUDY: No previous studies for comparison. TECHNIQUE: Axial images of the thoracic spine were obtained following intravenous injection of 94 cc Optiray 320 IV. Sagittal and coronal reconstructions were viewed. Automated exposure control was utilized for the study. A dose lowering technique was utilized adhering to the principles of ALARA. FINDINGS: Alignment of the thoracic spine is anatomic. Vertebral body heights are maintained. There is no thoracic spine fracture. Multiple Schmorl's nodes. Mild disc space narrowing is noted with moderate anterior osteophytosis. Chest CT will be reported separately. IMPRESSION: No acute thoracic spine fracture or subluxation. ACT 112: Negative or not required by law. Electronically signed by: Venkat Sims M.D. 08/03/2021 7:[address] 08/03/21 16:57 CT OF THE CERVICAL SPINE WITHOUT CONTRAST CLINICAL HISTORY: trauma COMPARISON STUDY: No previous studies for comparison. TECHNIQUE: Helical axial images of the cervical spine were obtained without IV contrast. Sagittal and coronal reconstructions were viewed. Automated exposure control was utilized for the study. A dose lowering technique was utilized adhering to the principles of ALARA. FINDINGS: Alignment of the cervical spine is anatomic. Vertebral body heights are maintained. No acute cervical spine fracture or subluxation is present. There is no prevertebral edema. Facet joints are intact. Severe multilevel degenerative disc disease and facet arthrosis is noted. There is partial fusion of C2 on C3. Upper rib anomalies are incidentally noted. IMPRESSION: No acute cervical spine fracture or subluxation. ACT 112: Negative or not required by law. Electronically signed by: Venkat Sims M.D. 08/03/2021 6:[address] 08/03/21 16:57 CT OF THE HEAD WITHOUT CONTRAST CLINICAL HISTORY: trauma COMPARISON STUDY: MRI of the brain February 03, 2021. TECHNIQUE: Helical axial images of the head were obtained without IV contrast. Automated exposure control was utilized for the study. A dose lowering technique was utilized adhering to the principles of ALARA. FINDINGS: No acute intracranial hemorrhage, midline shift or mass effect is present. White matter hypodensity suggests small vessel disease. The ventricular system is unremarkable. The basal cisterns are patent. No extra-axial collections are present. There are no findings to suggest acute dural sinus thrombosis or acute territorial infarct. No significant calvarial abnormalities are present. Nasal septum is perforated. IMPRESSION: 1. No acute intracranial findings. 2. No acute calvarial fracture. ACT 112: Negative or not required by law. Electronically signed by: Venkat Sims M.D. 08/03/2021 6:53 PM ECG Additional Comments: Sinus bradycardia with 1st degree A-V block with Premature atrial complexes Non- specific intra-ventricular conduction block. Similar findings seen on previous EKGs. Supervising Physician Co-Signing Physician Notes Attending addendum: I have physically seen this patient, have supervised the BRIANNA's activities, and agree with the H&P unless as otherwise noted. Assessment and Plan: Multiple falls- Symptoms have been present for years, but more frequently over the past month. Potential etiologies include but not limited to: Heart block, other arrhythmia, generalized weakness Consult PT/OT, may require inpatient rehab stay First-degree AV block/paroxysmal atrial fibrillation/status post aortic valve replacement/cardiomyopathy/hypertension The patient will be admitted to telemetry for serial cardiac enzymes, serial EKG's, cardiac rhythm monitoring and a 2-D echocardiogram with Dopplers. Heart rate in 40s-50s Optimize magnesium of 1.3 Continue amiodarone 10 mg daily, but reduce metoprolol dosing If patient has recurrence of H fibrillation I would is negative inotrope dosing, consideration may need to be given to need for pacer Continue warfarin, follow serial INR Hold HCTZ due to low magnesium Consult cardiology Remaining orders and notations as noted PG Care Time/CCT Total # of Minutes Spent Total Time Spent with Patient: Total time spent is greater than 50% in coordination of care (as documented) at patient's floor/unit and/or counseling patient: Coding Level of Care Code 97584 Initial Inpt Care Lvl 3 Diagnoses Multiple falls R29.6 Type 2 diabetes mellitus E11.9 HTN, goal below 140/90 I10 Paroxysmal atrial fibrillation I48.0 Cardiomyopathy I42.9 S/P aortic valve replacement Z95.2 Acquired hypothyroidism E03.9 GERD without esophagitis K21.9 Hypomagnesemia E83.42 First degree AV block I44.0 Elevated LFTs R79.89
[2021-08-03 20:55] LABS: Influenza A virus by PCR Negative (Neg); Influenza B virus by PCR Negative (Neg); RSV by PCR Negative (Neg); SARS CoV2 RNA(COVID-19) InHosp NEGATIVE (Negative)
[2021-08-03] MEDS ORDERED: WARFARIN SOD 5 MG TAB PO ONE (20:55)
[2021-08-03] MEDS ORDERED: GLUCOSE 10 TAB/TUBE PO PRN (22:29)
[2021-08-03] MEDS ORDERED: NITROGLYCERIN SL 0.4 MG/TAB TAB SL PRN (22:29)
[2021-08-03] MEDS ORDERED: DEXTROSE 50% 50 ML SYRINGE IV PRN (22:29)
[2021-08-03] MEDS ORDERED: ONDANSETRON INJ 2 MG/ML 2 ML VIAL IV PRN (22:29)
[2021-08-03] MEDS ORDERED: POLYETHYLENE (MIRALAX) 17 GM PACK PO PRN (22:29)
[2021-08-03] MEDS ORDERED: GLUCAGON FOR INJ 1 MG VIAL SQ PRN (22:29)
[2021-08-03] MEDS ORDERED: ALBUTEROL HFA 8 GM INHALER INH PRN (22:29)
[2021-08-03] MEDS ORDERED: CARBOHYDRATES FOR HYPOGLYCEMIA PO PRN (22:29)
[2021-08-03] MEDS ORDERED: GLUCOSE 40% GEL 15 GM TUBE PO PRN (22:29)
[2021-08-03] MEDS: MAGNESIUM CHLORIDE W/CALCIUM 64MG DELAYED REL TAB PO SCH (23:30)
[2021-08-03] MEDS ORDERED: PNEUMOCOCCAL POLYSACCHARIDES 25 MCG/0.5 ML VIAL/SYR IM ONE (23:35)
[2021-08-03] MEDS: INSULIN ASPART PER UNIT SC SCH (23:37)
[2021-08-03] MEDS: LIDOCAINE 5% 1 PATCH TD SCH (23:59)
[2021-08-04] MEDS: SODIUM CHLORIDE 0.9% 1000ML 1,000 ML IV SCH ×3 (01:17→16:34)
[2021-08-04] MEDS: ACETAMINOPHEN 325 MG TAB PO PRN ×3 (03:16→13:20)
[2021-08-04] MEDS: LEVOTHYROXINE SODIUM 50 MCG TABLET PO SCH (05:46)
[2021-08-04 07:26] LABS: Basophils # (auto) 0.02 K/uL (0-0.2); Basophils % (auto) 0.5 %; Eosinophils # (auto) 0.13 K/uL (0-0.5); Eosinophils % (auto) 3.1 %; Hematocrit (blood only) 36.2 % (42-52); Hemoglobin 12.1 g/dL (14.0-18.0); Immature Granulocytes # (auto) 0.01 K/uL (0.00-0.02); Immature Granulocytes % (auto) 0.2 %; Lymphocytes # (auto) 0.88 K/uL (1.2-3.4); Mean Corpuscular Hemoglobin 29.9 pg (25-34); Mean Corpuscular Hgb Conc 33.4 g/dL (32-36); Mean Corpuscular Volume 89.4 fL (80-100); Monocytes # (auto) 0.61 K/uL (0.11-0.59); Monocytes % (auto) 14.6 %; Neutrophils # (auto) 2.54 K/uL (1.4-6.5); Neutrophils % (auto) 60.6 %; Platelet Count 136 K/uL (130-400); RDW Coefficient of Variation 15.7 % (11.5-14.5); RDW Standard Deviation 51.4 fL (36.4-46.3); Red Blood Count 4.05 M/uL (4.7-6.1); White Blood Count 4.19 K/uL (4.8-10.8)
[2021-08-04 07:41] LABS: INR 1.9 (0.9-1.1); Prothrombin Time 19.2 Seconds (9.0-12.0)
[2021-08-04 07:47] LABS: Albumin Globulin Ratio 1.6 (0.9-2); Albumin Level 3.9 gm/dl (3.4-5.0); BUN Creatinine Ratio 18.1 (10-20); Bilirubin,Total 0.6 mg/dl (0.2-1.0); Calcium 8.7 mg/dl (8.5-10.1); Creatinine Clr Calc Pharmacy 70.7 ml/min; Est GFR (African American) 90.3 ml/min; Est GFR (Non-African American) 77.9 ml/min; Globulin 2.5 gm/dl (2.5-4.0); Magnesium 1.7 mg/dl (1.7-2.4); Potassium 3.7 mmol/L (3.5-5.1); Total Protein 6.4 gm/dl (6.0-8.3)
[2021-08-04 07:59] LABS: Estimated Average Glucose 126 mg/dl
[2021-08-04] MEDS: INSULIN ASPART PER UNIT SC SCH ×4 (08:05→20:53)
[2021-08-04] MEDS: METOPROLOL SUCC 50MG EXT REL TAB PO SCH (08:44)
[2021-08-04] MEDS: COLCHICINE 0.6 MG TAB PO PRN (08:44)
[2021-08-04] MEDS: AMIODARONE 200 MG TAB PO SCH (08:44)
[2021-08-04] MEDS: ATORVASTATIN 40 MG TAB PO SCH (08:44)
[2021-08-04] MEDS: lisinopril 10 MG TAB PO SCH (08:44)
[2021-08-04] MEDS: MAGNESIUM CHLORIDE W/CALCIUM 64MG DELAYED REL TAB PO SCH ×2 (08:44→20:22)
[2021-08-04] MEDS ORDERED: METOPROLOL SUCC 50MG EXT REL TAB PO SCH (09:00)
--- NOTE | 2021-08-04 09:26 | Cardiology Consultation ---
Date of Consultation August 04, 2021 Assessment & Plan (1) Multiple falls: (2) Vertigo: Mr. Shaw is a 75-year-old male with a history of Rheumatic Heart Disease s/p Mechanical AVR (for and AI), Hypertension, Dyslipidemia, Type 2 Diabetes Mellitus, Cardiomyopathy, Chronic LBBB, and Paroxysmal Atrial Fibrillation who was admitted to [facility] yesterday with more frequent falls over the past 3 weeks. Patient describes having dizziness (feeling off balance, vertiginous) and recurrent falls and he typically falls in the same direction when he falls -- and these past 3 falls occurred [place]. He gets a sensation of being "off balance", he adjusts his footing, and then falls. He also feels that his weak right ankle "gives out" and contributes to these falls. Patient sustained a fall 3 weeks ago while fishing and struck the back of his head on a rock. He is uncertain if he lost consciousness after striking his head -- but he clearly remembers the actual falls. Patient states since then he has felt more unsteady and off balance, and has had accompanying headaches, frequent dizzy spells, and back pain. He has a history of chronic back pain although it has been worse since the fall. He subsequently fell at least twice since then, but he has not sustained any further head trauma. Patient offers no other complaints. He has significant sensorineural hearing loss (L ear worse than his R ear) and vertigo but is not clear whether or not he has tinnitus. He offers no other complaints. Patient has not had any angina pectoris or anginal equivalent symptoms, recent exacerbations of heart failure, or any recurrent A-Fib to his knowledge. Neither his 1st degree AV block or his sinus bradycardia are contributing to his falls or vertigo. Consider Meniere's disease as a possible diagnosis -- hearing loss, vertigo, and a history of pulsatile tinnitus. Recommend the following: -- Resume Dyazide 37.5-25 mg daily. -- Trial of a labyrinthine suppressant such as meclizine or a benzodiazepine. (3) Cardiomyopathy: Echocardiogram February 2021 showed an LVEF 40% to 45% with mild global hypokinesis, septal motion consistent with bundle branch block, and prosthetic aortic valve with acceptable transvalvular gradient/velocity. -- No evidence of CAD on catheterizations 2014 and 2017. -- His cardiomyopathy is probably idiopathic or related to LBBB/conduction disease. -- No recent exacerbations of heart failure. -- Resume Metoprolol Succinate ER at 100 mg daily. -- Continue Lisinopril 10 mg daily. -- Resume Dyazide 37.5-25 mg daily. -- Low sodium diet. -- Monitor daily body weights and I&O's. (4) Rheumatic aortic stenosis: (5) S/P aortic valve replacement: Echo February 2021 showed a wel-seated prosthetic aortic valve with acceptable transvalvular gradient/velocity. -- Continue Coumadin for an INR of 2.0 to 3.0. (6) HTN, goal below 140/90: -- Continue medications as outlined above. (7) Acquired hypothyroidism: TSH on admission is 9.69 uIU/mL so his thyroid is under-replaced. -- Recommend increasing Levothyroxine to 88 or 100 mcg daily, recheck TSH in 8 weeks. -- Hypothyroidism may be contributing to his bradycardia/1st degree AV block. (8) Dyslipidemia, goal LDL below 100: -- Continue Atorvastatin 40 mg daily. (9) Paroxysmal atrial fibrillation: Currently in sinus bradycardia. -- Continue Amiodarone 200 mg daily. -- Resume Metoprolol Succinate ER at 100 mg daily. -- Continue Coumadin for an INR of 2.0 to 3.0. History of Present Illness Reason for Consultation: -- Frequent Falls. -- Sinus Bradycardia. -- 1st Degree AV Block. Requesting Physician: Chaz Barrios MD Attending Physician: Jasmeet Alaniz MD History of Present Illness Mr. Shaw is a 75-year-old male with a history of Rheumatic Heart Disease s/p Mechanical AVR (for and AI), Hypertension, Dyslipidemia, Type 2 Diabetes Mellitus, Cardiomyopathy, Chronic LBBB, and Paroxysmal Atrial Fibrillation who was admitted to [facility] yesterday with more frequent falls over the past 3 weeks. Patient describes having dizziness (feeling off balance, vertiginous) and recurrent falls and he typically falls in the same direction when he falls -- and these past 3 falls occurred [place]. He gets a sensation of being "off balance", he adjusts his footing, and then falls. He also feels that his weak right ankle "gives out" and contributes to these falls. Patient sustained a fall 3 weeks ago while fishing and struck the back of his head on a rock. He is uncertain if he lost consciousness after striking his head -- but he clearly remembers the actual falls. Patient states since then he has felt more unsteady and off balance, and has had accompanying headaches, frequent dizzy spells, and back pain. He has a history of chronic back pain although it has been worse since the fall. He subsequently fell at least twice since then, but he has not sustained any further head trauma. Patient offers no other complaints. He has significant sensorineural hearing loss (L ear worse than his R ear) and vertigo but is not clear whether or not he has tinnitus. He offers no other complaints. He denies any exertional chest pain, heaviness, tightness, pressure, or discomfort. He denies any exertional neck, jaw, back, or arm pain. He has not had any recent A-Fib but he does not have any palpitations/symptoms associated with his A-Fib since he is on negative chronotropes. Typically the only way the patient can tell if he is in atrial fibrillation is when he lies quietly in bed at night and his prosthetic valve is audible and irregular. Patient denies any syncope or near syncope. Patient body weights have been stable and he consistently weighs between 198 to 200 pounds on his home scales, and he has not had any recent fluid retention. Patient remains compliant his medications and has not any adverse side effects. Patient denies any bleeding complications related to Coumadin therapy. In the ER he had CT scans of the head, C-spine, T-spine, L-spine, Chest, and his Abdomen and Pelvis -- these were unremarkable. EKG showed sinus bradycardia at 59 bpm with 1st degree AV block and a LBBB (QRS duration is 140 msec) with a single PAC. service dispatcher overnight into today shows sinus bradycardia in the 40's and 50's with 1st degree AV block and IVCD. One 4 beat run of non- sustained V-tach vs SVT. High sensitivity Troponin I is normal at 10.6 pg/mL. TSH is abnormal at 9.69 uIU/mL. He was also hypomagnesemic with a serum Mg level of 1.3 mg/dL -- which has since been corrected. He has had 2 catheterizations in 2014 and in 2018 showing no CAD. ECHOCARDIOGRAM 02/26/21: -- Top-normal LV size with mildly to moderately reduced LV systolic function. -- LVEF 40% to 45%,septal motion consistent with bundle branch block. -- Mild global hypokinesis. -- Mild concentric LVH. -- Mechanical aortic valve with acceptable transvalvular gradient/velocity. -- Normal estimated RVSP 24 mmHg. He has had the following studies/procedures: 1. Mechanical aortic valve replacement 1994 in [place]: For rheumatic aortic stenosis/regurgitation. 2. Nuclear stress 07/31/2014 [facility]: Inferior and inferolateral reversible defect. 3. Cardiac Catheterization 08/28/2014 [facility]: No CAD. 4. Echo 01/25/2018 [facility]: Normal LV size with mildly reduced systolic function. EF 45%. Mild diffuse hypokinesis. Septal motion consistent with postoperative state. Mechanical aortic valve with mean gradient 12. RVSP 23. Compared to prior study 02/25/2016, LV systolic function has mildly decreased. 5. Cardiac Catheterization 01/29/2018 [facility]: Co dominant system. No CAD reported. Very large ramus. 6. Zio patch 02/15/2018 to 03/01/2018 [facility]: Sinus rhythm with average heart rate 63. First-degree AV block and IVCD. Two episodes of nonsustained VT up to 5 beats in duration. Occasional paroxysmal SVT up to 21 seconds, probable atrial tachycardia. Frequent PACs. Occasional PVCs. 7. Echo 06/19/2020 [facility]: Normal LV size with moderately reduced systolic function. EF 35%-39%. Septal motion consistent with bundle-branch block. Mechanical aortic valve with expected transvalvular velocity/gradient. Normal RVSP. 8. Nuclear Stress 06/19/2020 [facility]: Negative for ischemia or infarct. EF 36%. Abnormal septal motion consistent with bundle-branch block. 9. 30 Day Cardiac Event Monitor 08/02/20 through 08/31/20: -- Underlying rhythm is normal sinus with IVCD. -- Frequent episodes of A-Fib with rates ranging between 85 to 140 bpm while in A-Fib. -- A-fib anywhere between 0% to 20% burden depending on the day. -- Sinus bradycardia/bradycardia during non-waking hours, slowest rate was 28 bpm. -- One cardiac pause lasting 2 seconds. -- PVC's and PAC's present. -- Two episodes on non-sustained V-tach, each lasted 4 beats. -- On most days he goes in and out of A-Fib and this appears to happen multiple times per day. He has had a few cardiac catheterizations throughout his life, with the most recent being in 2014 and 2017 with no reported CAD based on cath reports. He has had reduced LV systolic function reported in 2017 and then in 2020 with further reduction to moderately reduced LV systolic function. He recalls being awakened early in the morning in June of 2020 with palpitations and shortness of breath. It felt as though his heart was racing and he could hear his heartbeat as well. He went to his PCPs office who found him to be in AFib with RVR and was sent to the emergency department at [facility] via ambulance. According to records, he spontaneously converted to sinus rhythm during his brief admission. Metoprolol was increased from 50 mg up to 100 mg on discharge. He underwent an echocardiogram and myocardial perfusion study. Both of which reported moderately reduced LV systolic function but no suggestion of active ischemia or infarct based on myocardial perfusion report. He is maintained anticoagulation therapy with Coumadin and has his INR followed through the [facility]. Allergies Allergy/AdvReac Type Severity Reaction Status Date / Time tramadol Allergy Mild ANAPHYLAXIS Verified 08/03/21 18:47 Penicillins Allergy Unknown CAN'T Verified 08/03/21 18:47 REMEMBER niacin AdvReac Rash, Verified 08/03/21 18:47 Itching TETANUS Allergy Mild ANAPHYLAXIS Uncoded 08/03/21 18:47 Home Medications Medication Instructions Recorded Confirmed Type acetaminophen 500 mg tablet 1,000 mg PO Q6H PRN tab 07/07/20 08/03/21 History albuterol sulfate 90 mcg/actuation 2 puff INHALATION Q6H PRN 07/07/20 08/03/21 History aerosol inhaler desonide 0.05 % topical cream 1 applic TOPICAL BID 07/07/20 08/03/21 History levothyroxine 50 mcg tablet 50 mcg PO QAM tab 07/07/20 08/03/21 History nitroglycerin 0.4 mg sublingual 0.4 mg SUBLINGUAL Q5M PRN 07/07/20 08/03/21 History tablet magnesium chloride 64 mg 64 mg PO BID tab 07/14/20 08/03/21 History (magnesium chloride) tablet,delayed release colchicine 0.6 mg capsule 0.6 mg PO BID PRN 09/01/20 08/03/21 History amiodarone 200 mg tablet 200 mg PO DAILY #90 tab 09/02/20 08/03/21 Rx lisinopril 10 mg tablet 10 mg PO DAILY #90 tab 11/24/20 08/03/21 Rx metoprolol succinate 100 mg 100 mg PO DAILY #90 tab 11/24/20 08/03/21 Rx tablet,extended release 24 hr metformin 1,000 mg tablet 1,000 mg PO BIDM #180 tab 02/17/21 08/03/21 Rx atorvastatin 40 mg tablet 40 mg PO DAILY #90 tab 05/19/21 08/03/21 Rx omeprazole 20 mg capsule,delayed 20 mg PO QAM #90 cap 05/19/21 08/03/21 Rx release triamterene 37.5 1 cap PO DAILY #90 cap 05/19/21 08/03/21 Rx mg-hydrochlorothiazide 25 mg capsule warfarin 5 mg tablet 5 mg PO QPM 08/03/21 08/03/21 History Patient History Medical History Acquired hypothyroidism Cardiomyopathy Dyslipidemia, goal LDL below 100 GERD without esophagitis HTN, 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 Paroxysmal atrial fibrillation Rheumatic aortic stenosis SBE (subacute bacterial endocarditis) prophylaxis candidate Type 2 diabetes mellitus Surgical History History of cardiac catheterization History of colonoscopy History of hand surgery History of nasal septoplasty S/P aortic valve replacement S/P tonsillectomy and adenoidectomy Family History Sister Cancer lymphoma Father Heart disease Hypertension Mother Heart disease Hypertension Brother Myocardial infarction Stroke Other No family history of adverse response to anesthesia No family history of bleeding disorder Social History Smoking Status: Former smoker Tobacco Type: Cigarettes and Smokeless Tobacco (Dip or Chew) Age Started Using Tobacco: 10; packs per day: 2; Years Smoked: 30; Second Hand Exposure: No; Do You Dip or Chew Tobacco: No; Tobacco Cessation Education Requested by Patient: No Hx Alcohol Use: No Hx Substance Use: No Preferred Language: Georgian Communication Ability: Effective Kst Operator Required: No Beliefs That Will Affect Care: None Current Living Situation: Alone Other Information That Helps Us Care for You: No Feels Safe at Home: Yes Safety Concerns: Feels Safe At This Time Seatbelt Use: always Assistive Devices: Glasses Assistive Devices Comment: Reading Review of Systems Review of Systems: 10 point ROS was completed and negative with the exception of what is mentioned in the HPI. Physical Exam Physical Exam: Patient is hypertensive at 173/71. GENERAL: Patient in no acute distress. HEENT: Head is atraumatic, normocephalic. EOM's intact without nystagmus. Facies symmetric. No perioral cyanosis. NECK: No JVD. JVP is not elevated. Carotid upstrokes are + 2 bilaterally without obvious bruits. CHEST/LUNGS: Clear to auscultation throughout all lung campos. No wheezes, rales, or crackles. CVS: S1 and S2 are regular at a rate of 48 bpm with a grade 1/6 basal systolic murmur at right 2nd intercostal space, crisp aortic valve closure sound. No obvious diastolic murmurs. No gallops or rubs. PMI is nondisplaced. No lifts, heaves, or thrills. No abdominal aortic or renal bruits. ABDOMINAL EXAM: Bowel sounds are present. No masses, organomegaly, or tenderness. EXTREMITIES: No clubbing or cyanosis. No edema. Intact radial pulses bilaterally. NEUROLOGIC EXAM: Patient is awake, alert, and oriented but hard of hearing. Pleasant and cooperative. Answers questions appropriately. Speech is clear. Normal movement in all 4 extremities. EKG 08/03/21 showed sinus bradycardia at 59 bpm with 1st degree AV block and a LBBB (QRS duration is 140 msec) with a single PAC. service dispatcher overnight into today shows sinus bradycardia in the 40's and 50's with 1st degree AV block and IVCD. One 4 beat run of non-sustained V-tach vs SVT. Results & Data ([facility]) Vital Signs (Past 12 Hours) Vital Signs Temp Pulse Pulse Resp BP BP Pulse Ox 08/04/21 07:26 36.3 C L 50 L 15 173/71 H 96 08/04/21 04:02 72 06/22/22 03:00 36.4 C L 45 L 16 173/72 H 95 08/03/21 23:01 36.6 C 48 L 20 159/72 H 97 08/03/21 22:29 36.4 C L 46 L 18 159/72 H 97 08/03/21 21:50 49 L 18 179/84 H 96 Pulse Ox 08/04/21 07:26 08/04/21 04:02 08/04/21 03:00 08/03/21 23:01 08/03/21 22:29 97 08/03/21 21:50 Laboratory Results Laboratory Results - last 24 hr 08/03/21 08/03/21 08/03/21 16:45 16:45 16:45 WBC 5.54 RBC 4.49 L Hgb 13.2 L Hct 39.7 L MCV 88.4 MCH 29.4 MCHC 33.2 RDW Std Deviation 51.1 H RDW Coeff of [place] 15.8 H Plt Count 180 MPV 12.7 H Immature Gran % (Auto) 0.2 Neut % (Auto) 60.0 Lymph % (Auto) 22.9 [place] % (Auto) 14.3 Eos % (Auto) 2.2 Baso % (Auto) 0.4 Neut # (Auto) 3.33 Lymph # (Auto) 1.27 [place] # (Auto) 0.79 H Eos # (Auto) 0.12 Baso # (Auto) 0.02 Immature Gran # (Auto) 0.01 PT 18.3 H INR 1.8 H Sodium 139 Potassium 3.6 Chloride 102 Carbon Dioxide 26 Anion Gap 11 BUN 20 Creatinine 1.13 Est Cr Clr Drug Dosing 59.0 Est GFR ( Amer) 72.3 Est GFR (Non-Af Amer) 62.4 BUN/Creatinine Ratio 17.7 Glucose 106 H POC Glucose Estimat Average Glucose Hemoglobin A1c Calcium 9.6 Magnesium 1.3 L Total Bilirubin 0.6 AST 68 H ALT 87 H Alkaline Phosphatase 66 Troponin I High Sens 10.6 Total Protein 7.5 Albumin 4.5 Globulin 3.0 Albumin/Globulin Ratio 1.5 Lipase 56 TSH Free T4 Anaplasma Smear Babesia Smear Babesia microti DNA PCR Lyme Disease IgG Ab Lyme Disease IgM Ab SARS-CoV-2 (PCR) Influenza Type A (PCR) Influenza Type B (PCR) RSV (RT-PCR) 08/03/21 08/03/21 08/03/21 16:45 16:45 16:45 WBC RBC Hgb Hct MCV MCH MCHC RDW Std Deviation RDW Coeff of [place] Plt Count MPV Immature Gran % (Auto) Neut % (Auto) Lymph % (Auto) [place] % (Auto) Eos % (Auto) Baso % (Auto) Neut # (Auto) Lymph # (Auto) [place] # (Auto) Eos # (Auto) Baso # (Auto) Immature Gran # (Auto) PT INR Sodium Potassium Chloride Carbon Dioxide Anion Gap BUN Creatinine Est Cr Clr Drug Dosing Est GFR ( Amer) Est GFR (Non-Af Amer) BUN/Creatinine Ratio Glucose POC Glucose Estimat Average Glucose Hemoglobin A1c Calcium Magnesium Total Bilirubin AST ALT Alkaline Phosphatase Troponin I High Sens Total Protein Albumin Globulin Albumin/Globulin Ratio Lipase TSH 9.690 H Free T4 0.70 Anaplasma Smear See Comment Babesia Smear See Comment Babesia microti DNA PCR Pending Lyme Disease IgG Ab Lyme Disease IgM Ab SARS-CoV-2 (PCR) Influenza Type A (PCR) Influenza Type B (PCR) RSV (RT-PCR) 08/03/21 08/03/21 08/03/21 17:08 22:41 Unknown WBC RBC Hgb Hct MCV MCH MCHC RDW Std Deviation RDW Coeff of [place] Plt Count MPV Immature Gran % (Auto) Neut % (Auto) Lymph % (Auto) [place] % (Auto) Eos % (Auto) Baso % (Auto) Neut # (Auto) Lymph # (Auto) [place] # (Auto) Eos # (Auto) Baso # (Auto) Immature Gran # (Auto) PT INR Sodium Potassium Chloride Carbon Dioxide Anion Gap BUN Creatinine Est Cr Clr Drug Dosing Est GFR ( Amer) Est GFR (Non-Af Amer) BUN/Creatinine Ratio Glucose POC Glucose 96 Estimat Average Glucose Hemoglobin A1c Calcium Magnesium Total Bilirubin AST ALT Alkaline Phosphatase Troponin I High Sens Total Protein Albumin Globulin Albumin/Globulin Ratio Lipase TSH Free T4 Anaplasma Smear Babesia Smear Babesia microti DNA PCR Lyme Disease IgG Ab Negative Lyme Disease IgM Ab Negative SARS-CoV-2 (PCR) NEGATIVE Influenza Type A (PCR) Negative Influenza Type B (PCR) Negative RSV (RT-PCR) Negative 08/04/21 08/04/21 08/04/21 07:07 07:07 07:07 WBC 4.19 L RBC 4.05 L Hgb 12.1 L Hct 36.2 L MCV 89.4 MCH 29.9 MCHC 33.4 RDW Std Deviation 51.4 H RDW Coeff of [place] 15.7 H Plt Count 136 MPV 12.0 H Immature Gran % (Auto) 0.2 Neut % (Auto) 60.6 Lymph % (Auto) 21.0 [place] % (Auto) 14.6 Eos % (Auto) 3.1 Baso % (Auto) 0.5 Neut # (Auto) 2.54 Lymph # (Auto) 0.88 L [place] # (Auto) 0.61 H Eos # (Auto) 0.13 Baso # (Auto) 0.02 Immature Gran # (Auto) 0.01 PT 19.2 H INR 1.9 H Sodium 138 Potassium 3.7 Chloride 103 Carbon Dioxide 30 Anion Gap 5 BUN 17 Creatinine 0.94 Est Cr Clr Drug Dosing 70.7 Est GFR ( Amer) 90.3 Est GFR (Non-Af Amer) 77.9 BUN/Creatinine Ratio 18.1 Glucose 106 H POC Glucose Estimat Average Glucose Hemoglobin A1c Calcium 8.7 Magnesium 1.7 Total Bilirubin 0.6 AST 59 H ALT 76 H Alkaline Phosphatase 48 Troponin I High Sens Total Protein 6.4 Albumin 3.9 Globulin 2.5 Albumin/Globulin Ratio 1.6 Lipase TSH Free T4 Anaplasma Smear Babesia Smear Babesia microti DNA PCR Lyme Disease IgG Ab Lyme Disease IgM Ab SARS-CoV-2 (PCR) Influenza Type A (PCR) Influenza Type B (PCR) RSV (RT-PCR) 08/04/21 08/04/21 07:07 07:32 WBC RBC Hgb Hct MCV MCH MCHC RDW Std Deviation RDW Coeff of [place] Plt Count MPV Immature Gran % (Auto) Neut % (Auto) Lymph % (Auto) [place] % (Auto) Eos % (Auto) Baso % (Auto) Neut # (Auto) Lymph # (Auto) [place] # (Auto) Eos # (Auto) Baso # (Auto) Immature Gran # (Auto) PT INR Sodium Potassium Chloride Carbon Dioxide Anion Gap BUN Creatinine Est Cr Clr Drug Dosing Est GFR ( Amer) Est GFR (Non-Af Amer) BUN/Creatinine Ratio Glucose POC Glucose 103 H Estimat Average Glucose 126 Hemoglobin A1c 6.0 H Calcium Magnesium Total Bilirubin AST ALT Alkaline Phosphatase Troponin I High Sens Total Protein Albumin Globulin Albumin/Globulin Ratio Lipase TSH Free T4 Anaplasma Smear Babesia Smear Babesia microti DNA PCR Lyme Disease IgG Ab Lyme Disease IgM Ab SARS-CoV-2 (PCR) Influenza Type A (PCR) Influenza Type B (PCR) RSV (RT-PCR) Medications Administered Medications acetaminophen 500 mg tablet 1,000 mg PO Q6H PRN tab 07/07/20 [History Confirmed 08/03/21] albuterol sulfate 90 mcg/actuation aerosol inhaler 2 puff INHALATION Q6H PRN 07/07/20 [History Confirmed 08/03/21] desonide 0.05 % topical cream 1 applic TOPICAL BID 07/07/20 [History Confirmed 08/03/21] levothyroxine 50 mcg tablet 50 mcg PO QAM tab 07/07/20 [History Confirmed 08/03/21] nitroglycerin 0.4 mg sublingual tablet 0.4 mg SUBLINGUAL Q5M PRN 07/07/20 [History Confirmed 08/03/21] magnesium chloride 64 mg (magnesium chloride) tablet,delayed release 64 mg PO BID tab 07/14/20 [History Confirmed 08/03/21] colchicine 0.6 mg capsule 0.6 mg PO BID PRN 09/01/20 [History Confirmed 08/03/21] amiodarone 200 mg tablet 200 mg PO DAILY #90 tab 09/02/20 [Rx Confirmed 08/03/21] lisinopril 10 mg tablet 10 mg PO DAILY #90 tab 11/24/20 [Rx Confirmed 08/03/21] metoprolol succinate 100 mg tablet,extended release 24 hr 100 mg PO DAILY #90 tab 11/24/20 [Rx Confirmed 08/03/21] metformin 1,000 mg tablet 1,000 mg PO BIDM #180 tab 02/17/21 [Rx Confirmed 08/03/21] atorvastatin 40 mg tablet 40 mg PO DAILY #90 tab 05/19/21 [Rx Confirmed 08/03/21] omeprazole 20 mg capsule,delayed release 20 mg PO QAM #90 cap 05/19/21 [Rx Confirmed 08/03/21] triamterene 37.5 mg-hydrochlorothiazide 25 mg capsule 1 cap PO DAILY #90 cap 05/19/21 [Rx Confirmed 08/03/21] warfarin 5 mg tablet 5 mg PO QPM 08/03/21 [History Confirmed 08/03/21] Home Medications Acetaminophen (Acetaminophen 325 Mg Tab) 650 mg PO Q4H PRN PRN Reason: Pain or Fever Stop: 09/02/21 22:28 Last Admin: 08/04/21 08:45 Dose: 650 mg Documented by: Albuterol (Albuterol Hfa 8 Gm Inhaler) 2 puffs INH Q6H PRN PRN Reason: shortness of breath or wheezin Stop: 09/02/21 22:28 Amiodarone HCl (Amiodarone 200 Mg Tab) 200 mg PO DAILY ION Stop: 09/03/21 08:59 Last Admin: 08/04/21 08:44 Dose: 200 mg Documented by: Atorvastatin Calcium (Atorvastatin 40 Mg Tab) 40 mg PO DAILY ION Stop: 09/03/21 08:59 Last Admin: 08/04/21 08:44 Dose: 40 mg Documented by: Colchicine (Colchicine 0.6 Mg Tab) 0.6 mg PO BID PRN PRN Reason: GOUT SYMPTOMS Stop: 09/02/21 23:45 Last Admin: 08/04/21 08:44 Dose: 0.6 mg Documented by: Dextrose (Dextrose 50% 50 Ml Syringe) 25 - 50 ml IV UD PRN; Protocol PRN Reason: Hypoglycemia Protocol Stop: 09/02/21 22:28 Glucagon (Glucagon For Inj 1 Mg Vial) 1 mg SQ UD PRN; Protocol PRN Reason: Hypoglycemia Protocol Stop: 09/02/21 22:28 Glucose (Glucose 10 Tabs/Tube) 4 - 8 tabs PO UD PRN; Protocol PRN Reason: Hypoglycemia Protocol Stop: 09/02/21 22:28 Glucose (Glucose 40% Gel 15 Gm Tube) 15 - 30 gm PO UD PRN; Protocol PRN Reason: Hypoglycemia Protocol Stop: 09/02/21 22:28 Sodium Chloride (Nss 1000ml) 1,000 mls @ 125 mls/hr IV .Q8H ION Stop: 09/02/21 16:59 Last Admin: 08/04/21 08:44 Dose: 125 mls/hr Documented by: Insulin Aspart (Insulin Aspart Per Unit) 0 units SC ACHS ION Stop: 09/02/21 22:28 Last Admin: 08/04/21 08:05 Dose: Not Given Documented by: Levothyroxine Sodium (Levothyroxine Sodium 50 Mcg Tablet) 50 mcg PO DAILYBB [facility] Stop: 09/03/21 06:29 Last Admin: 08/04/21 05:46 Dose: 50 mcg Documented by: Lidocaine (Lidocaine 5% 1 Patch) 1 patch TD QPM [facility] Stop: 09/02/21 23:44 Last Admin: 08/03/21 23:59 Dose: 1 patch Documented by: Lisinopril (Lisinopril 10 Mg Tab) 10 mg PO DAILY [facility] Stop: 09/03/21 08:59 Last Admin: 08/04/21 08:44 Dose: 10 mg Documented by: Magnesium Chloride (Magnesium Chloride W/Calcium 64mg Delayed Rel Tab) 64 mg PO BID [facility] Stop: 09/02/21 22:28 Last Admin: 08/04/21 08:44 Dose: 64 mg Documented by: Metoprolol Succinate (Metoprolol Succ 50mg Ext Rel Tab) 50 mg PO DAILY [facility] Stop: 09/03/21 08:59 Last Admin: 08/04/21 08:44 Dose: Not Given Documented by: Miscellaneous (Carbohydrates For Hypoglycemia ) 15 - 30 gm PO UD PRN PRN Reason: Hypoglycemia Protocol Stop: 09/02/21 22:28 Miscellaneous (Remove Lidoderm Patch) 1 ea N/A DAILY@0900 [facility] Stop: 09/03/21 08:59 Last Admin: 08/04/21 08:46 Dose: 1 ea Documented by: Nitroglycerin (Nitroglycerin Sl 0.4 Mg/Tab Tab) 0.4 mg SL Q5M PRN PRN Reason: chest pain Stop: 09/02/21 22:28 Ondansetron HCl (Ondansetron Inj 2 Mg/Ml 2 Ml Vial) 4 mg IV Q6H PRN PRN Reason: Nausea Stop: 09/02/21 22:28 Polyethylene Glycol (Polyethylene (Miralax) 17 Gm Pack) 17 gm PO DAILY PRN PRN Reason: Constipation Stop: 09/02/21 22:28 Warfarin Sodium (Warfarin Sod 5 Mg Tab) 5 mg PO DAILY@1600 [facility] Stop: 09/03/21 15:59 PG Care Time/CCT Total # of Minutes Spent Total Time Spent with Patient: Total time spent is greater than 50% in coordination of care (as documented) at patient's floor/unit and/or counseling patient:32 Coding Level of Care Code 54014 Initial Inpt Care Lvl 3 Diagnoses Multiple falls R29.6 Vertigo R42 Cardiomyopathy I42.9 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
--- NOTE | 2021-08-04 11:17 | Electrocardiogram Report ---
Test Reason : Blood Pressure : / mmHG Vent. Rate : 059 BPM Atrial Rate : 059 BPM P-R Int : 292 ms QRS Dur : 140 ms QT Int : 510 ms P-R-T Axes : 049 038 079 degrees QTc Int : 504 ms Sinus bradycardia with 1st degree A-V block with Premature atrial complexes Non-specific intra-ventricular conduction block Cannot rule out Anterior infarct , age undetermined Abnormal ECG No previous ECGs available Confirmed by Jasmeet Alaniz ([id number]) on 08/04/2021 11:17:06 AM Referred By: Jeanette Ring Confirmed By:Jasmeet Alaniz
--- NOTE | 2021-08-04 12:22 | XRay Report ---
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 Mild to moderate osteoarthritis of the imaged foot with moderate sized calcaneal enthesophy han. Arterial calcifications. No acute fracture or dislocation. Mild circumferential soft tissue prom inence of the ankle. IMPRESSION: 1. No acute fracture. 2. 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 ACT 112: Negative or not required by law. The above report was generated using voice recognition software. It may contain grammatical, syntax o r spelling errors. Electronically signed by: Amarjit Barcenas M.D. 08/04/2021 12:21 PM
--- NOTE | 2021-08-04 12:56 | Hospitalist Progress Note ---
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 This leads to frequent vertigo, imbalance and then frequent falls. (2) First degree AV block: Plan: - Seen on previous EKGs over the past year, HR 40-50s here. Wore an event monitor in August 2020 and had episodes of suinus bradycardia then with HR to 20- 30s. - Consulted cardiology, also testing for anaplasmosis and Lyme--both negative. - Will reduce tomorrow's metoprolol dose from 100 to 50 mg. - Admitted to PCU.-Cardiology on consult (3) Type 2 diabetes mellitus: Plan: - Hold metformin. - Accuchecks ACHS with SSI. - A1c in AM. (4) Ankle pain: Plan: obtain x ray right ankle (5) Elevated LFTs: Plan: - AST 68, ALT 87, ALT only slightly elevated from labs drawn last November. - Anaplasmosis, Lyme negative. Patient has been amiodarone since last August. Not volume overloaded/no history of HF. ? blood transfusion. - Continue to follow on AM labs. (6) Hypomagnesemia: Plan: - 1.3, replete with IV Mg x2, recheck in AM. - Continue magnesium supplementation. (7) HTN, goal below 140/90: Plan: - Holding HCTZ given low magnesium; continue lisinopril. (8) Paroxysmal atrial fibrillation: Plan: - On Coumadin for this as well as mechanical aortic valve with INR goal 2.0-3.0 per most recent cardiology note (1.8 today). - Continue amiodarone 200 mg daily, continue metoprolol but will reduce dose to 50 mg tomorrow AM given bradycardia. (9) Cardiomyopathy: Plan: - Echocardiogram from February 2021: LVEF 40% to 45% with mild global hypokinesis, septal motion consistent with bundle branch block, and prosthetic aortic valve with acceptable transvalvular gradient/velocity. (10) S/P aortic valve replacement: Plan: - Coumadin 5mg daily with INR goal 2.0-3.0, 1.8 today. (11) Acquired hypothyroidism: Plan: - Continue levothyroxine 50 mcg daily. - TSH 9.69, free T4 0.70. (12) GERD without esophagitis: Plan: - Takes omeprazole only PRN; holding for now due to low mag, would recommend using Pepcid in future to avoid low magnesium. Plan: - Admit to PCU given bradycardia with 1st degee AV block - SCDs, warfarin for VTE ppx. - Full Code. Admission and Anticipated Discharge Date Admission Date: August 03, 2021 Subjective patieent seen and examined, complained of right ankle pain Review of Systems Review of Systems: All systems reviewed are negative, apart from the ones contained in the history. Physical Exam Physical Exam: The patient is awake, alert and oriented 3, well developed and well nourished, normocephalic and atraumatic, lying in bed and in no acute distress. HEENT--PERRL, EOMI, mucous membranes and oropharynx mildly dry Neck--supple. No JVD. No bruits. Thyroid normal, trachea midline, no adenopathy. Heart--normal S1 and S2. No murmurs, rubs or gallops. Lungs--clear bilaterally, no respiratory distress, no accessory muscle use. Abdomen--normal bowel sounds and soft. Mild epigastric and left sided abdominal pain Extremities--no cyanosis or clubbing. No edema. Dermatologic--normal skin turgor, normal color, no abnormal lymph nodes, no rash. Neurologic--cranial nerves II through XII grossly intact. Rheumatologic--normal range of motion. Psychiatric--normal affect. Results & Data Results & Data ([facility]) Vital Signs (Past 12 Hours) Vital Signs Temp Pulse Pulse Resp BP Pulse Ox 08/04/21 11:17 97.3 F L 55 L 15 160/69 H 96 08/04/21 07:26 97.3 F L 50 L 15 173/71 H 96 08/04/21 04:02 72 08/04/21 03:00 97.5 F L 45 L 16 173/72 H 95 PG Care Time/CCT Total # of Minutes Spent Total Time Spent with Patient: Total time spent is greater than 50% in coordination of care (as documented) at patient's floor/unit and/or counseling patient: Coding Level of Care Code 09329 Subseq Hosp Care Lvl 2 Diagnoses Multiple falls R29.6 First degree AV block I44.0 Type 2 diabetes mellitus E11.9 Elevated LFTs R79.89 Hypomagnesemia E83.42 HTN, goal below 140/90 I10 Paroxysmal atrial fibrillation I48.0 Cardiomyopathy I42.9 S/P aortic valve replacement Z95.2 Acquired hypothyroidism E03.9 GERD without esophagitis K21.9 Ankle pain M25.579 Time Spent (min) 35
[2021-08-04] MEDS: WARFARIN SOD 5 MG TAB PO SCH (16:34)
[2021-08-04] MEDS: LIDOCAINE 5% 1 PATCH TD SCH (20:21)
[2021-08-05] MEDS: SODIUM CHLORIDE 0.9% 1000ML 1,000 ML IV SCH ×2 (00:42→08:11)
[2021-08-05] MEDS: LEVOTHYROXINE SODIUM 50 MCG TABLET PO SCH (05:49)
[2021-08-05] MEDS: INSULIN ASPART PER UNIT SC SCH ×4 (07:20→20:40)
[2021-08-05 07:43] LABS: Hematocrit (blood only) 36.4 % (42-52); Hemoglobin 12.2 g/dL (14.0-18.0); Mean Corpuscular Hemoglobin 30.3 pg (25-34); Mean Corpuscular Hgb Conc 33.5 g/dL (32-36); Mean Corpuscular Volume 90.3 fL (80-100); Mean Platelet Volume 11.8 fL (7.4-10.4); Platelet Count 146 K/uL (130-400); RDW Coefficient of Variation 15.8 % (11.5-14.5); RDW Standard Deviation 52.4 fL (36.4-46.3); Red Blood Count 4.03 M/uL (4.7-6.1); White Blood Count 4.61 K/uL (4.8-10.8)
[2021-08-05 08:07] LABS: BUN Creatinine Ratio 13.5 (10-20); Calcium 8.2 mg/dl (8.5-10.1); Creatinine Clr Calc Pharmacy 74.5 ml/min; Est GFR (African American) 95.6 ml/min; Est GFR (Non-African American) 82.5 ml/min; Potassium 3.8 mmol/L (3.5-5.1)
[2021-08-05] MEDS: ATORVASTATIN 40 MG TAB PO SCH (08:09)
[2021-08-05] MEDS: MAGNESIUM CHLORIDE W/CALCIUM 64MG DELAYED REL TAB PO SCH ×2 (08:09→20:46)
[2021-08-05] MEDS: AMIODARONE 200 MG TAB PO SCH (08:09)
[2021-08-05] MEDS: COLCHICINE 0.6 MG TAB PO PRN (08:09)
[2021-08-05] MEDS: lisinopril 10 MG TAB PO SCH (08:09)
[2021-08-05] MEDS: METOPROLOL SUCC 50MG EXT REL TAB PO SCH (08:12)
[2021-08-05] MEDS: ACETAMINOPHEN 325 MG TAB PO PRN ×2 (08:40→13:45)
[2021-08-05] MEDS ORDERED: amLODIPine BESYLATE 5 MG TAB PO ONE (11:14)
--- NOTE | 2021-08-05 12:07 | Hospitalist Progress Note ---
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 This leads to frequent vertigo, imbalance and then frequent falls. Patient lives at home alone and is not open to placement in a facility Will give him a rolling walker upon discharge (2) First degree AV block: Plan: - Seen on previous EKGs over the past year, HR 40-50s here. Wore an event monitor in August 2020 and had episodes of suinus bradycardia then with HR to 20- 30s. - Has been evaluated by cardiology (3) Type 2 diabetes mellitus: Plan: - Hold metformin. - Accuchecks ACHS with SSI. - A1c in AM. (4) Elevated LFTs: Plan: - AST 68, ALT 87, ALT only slightly elevated from labs drawn last November. - Anaplasmosis, Lyme negative. Patient has been amiodarone since last August. - Continue to follow on AM labs. (5) Hypomagnesemia: Plan: - 1.3, replete with IV Mg x2, recheck in AM. - Continue magnesium supplementation. (6) HTN, goal below 140/90: Plan: - Holding HCTZ given low magnesium; continue lisinopril. (7) Paroxysmal atrial fibrillation: Plan: - On Coumadin for this as well as mechanical aortic valve with INR goal 2.0-3.0 per most recent cardiology note (1.8 today). - Continue amiodarone 200 mg daily, continue metoprolol but will reduce dose to 50 mg tomorrow AM given bradycardia. (8) Cardiomyopathy: Plan: - Echocardiogram from February 2021: LVEF 40% to 45% with mild global hypokinesis, septal motion consistent with bundle branch block, and prosthetic aortic valve with acceptable transvalvular gradient/velocity. (9) S/P aortic valve replacement: Plan: - Coumadin 5mg daily with INR goal 2.0-3.0, 1.8 today. (10) Acquired hypothyroidism: Plan: - Continue levothyroxine 50 mcg daily. - TSH 9.69, free T4 0.70. (11) GERD without esophagitis: Plan: - Takes omeprazole only PRN; holding for now due to low mag, would recommend using Pepcid in future to avoid low magnesium. Plan: - likely d/c in the next 24 hrs - SCDs, warfarin for VTE ppx. - Full Code. Admission and Anticipated Discharge Date Admission Date: August 03, 2021 Subjective patient seen and examined, no new complaints today Review of Systems Review of Systems: All systems reviewed are negative, apart from the ones contained in the history. Physical Exam 2 Physical Exam: The patient is awake, alert and oriented 3, well developed and well nourished, normocephalic and atraumatic, lying in bed and in no acute distr ess. HEENT--PERRL, EOMI, mucous membranes and oropharynx mildly dry Neck--supple. No JVD. No bruits. Thyroid normal, trachea midline, no adenopathy. Heart--normal S1 and S2. No murmurs, rubs or gallops. Lungs--clear bilaterally, no respiratory distress, no accessory muscle use. Abdomen--normal bowel sounds and soft. Mild epigastric and left sided abdominal pain Extremities--no cyanosis or clubbing. No edema. Dermatologic--normal skin turgor, normal color, no abnormal lymph nodes, no rash. Neurologic--cranial nerves II through XII grossly intact. Rheumatologic--normal range of motion. Psychiatric--normal affect. Results & Data Results & Data ([facility]) Vital Signs (Past 12 Hours) Vital Signs Temp Pulse Pulse Resp BP BP Pulse Ox 08/05/21 10:37 97.5 F L 57 L 14 190/72 H 96 08/05/21 08:08 56 L 174/81 H 08/05/21 07:00 50 L 08/05/21 06:59 97.5 F L 48 L 16 164/83 H 98 08/05/21 04:00 98.1 F 50 L 18 170/75 H 99 PG Care Time/CCT Total # of Minutes Spent Total Time Spent with Patient: Total time spent is greater than 50% in coordination of care (as documented) at patient's floor/unit and/or counseling patient: Coding Level of Care Code 51286 Subseq Hosp Care Lvl 2 Diagnoses Multiple falls R29.6 First degree AV block I44.0 Type 2 diabetes mellitus E11.9 Elevated LFTs R79.89 Hypomagnesemia E83.42 HTN, goal below 140/90 I10 Paroxysmal atrial fibrillation I48.0 Cardiomyopathy I42.9 S/P aortic valve replacement Z95.2 Acquired hypothyroidism E03.9 GERD without esophagitis K21.9 Time Spent (min) 35
[2021-08-05] MEDS: WARFARIN SOD 5 MG TAB PO SCH (16:35)
[2021-08-05] MEDS: LIDOCAINE 5% 1 PATCH TD SCH (20:46)
[2021-08-06] MEDS: ACETAMINOPHEN 325 MG TAB PO PRN (03:58)
[2021-08-06] MEDS: LEVOTHYROXINE SODIUM 50 MCG TABLET PO SCH (06:37)
[2021-08-06 07:20] LABS: Hematocrit (blood only) 38.4 % (42-52); Hemoglobin 13.1 g/dL (14.0-18.0); Mean Corpuscular Hemoglobin 30.5 pg (25-34); Mean Corpuscular Hgb Conc 34.1 g/dL (32-36); Mean Corpuscular Volume 89.5 fL (80-100); Mean Platelet Volume 12.3 fL (7.4-10.4); Platelet Count 156 K/uL (130-400); RDW Coefficient of Variation 15.7 % (11.5-14.5); RDW Standard Deviation 51.3 fL (36.4-46.3); Red Blood Count 4.29 M/uL (4.7-6.1); White Blood Count 4.58 K/uL (4.8-10.8)
[2021-08-06 07:47] LABS: BUN Creatinine Ratio 15.1 (10-20); Calcium 8.6 mg/dl (8.5-10.1); Creatinine Clr Calc Pharmacy 71.2 ml/min; Est GFR (African American) 91.5 ml/min; Est GFR (Non-African American) 78.9 ml/min; Potassium 3.8 mmol/L (3.5-5.1)
[2021-08-06] MEDS ORDERED: amLODIPine BESYLATE 5 MG TAB PO SCH (09:00)
[2021-08-06] MEDS: INSULIN ASPART PER UNIT SC SCH (09:03)
[2021-08-06] MEDS: AMIODARONE 200 MG TAB PO SCH (09:09)
[2021-08-06] MEDS: MAGNESIUM CHLORIDE W/CALCIUM 64MG DELAYED REL TAB PO SCH (09:09)
[2021-08-06] MEDS: METOPROLOL SUCC 50MG EXT REL TAB PO SCH (09:10)
[2021-08-06] MEDS: lisinopril 10 MG TAB PO SCH (09:10)
[2021-08-06] MEDS: ATORVASTATIN 40 MG TAB PO SCH (09:10)
[2021-08-06 11:11] LABS: INR 1.8 (0.9-1.1); Prothrombin Time 18.4 Seconds (9.0-12.0)
--- NOTE | 2021-08-06 12:07 | Discharge Summary ---
Date of Service August 06, 2021 Admission HPI Per Admitting Provider Josh Shaw is a 75 y/o male with a PMH of hypertension, hyperlipidemia, rheumatic heart disease s/p mechanical AVR, DM2, chronic LBBB, cardiomyopahty, and paroxysmal a fib on Coumadin who presents today for initial frequent falls. Patient had a fall about 3 weeks ago while he was fishing, he actually believes he had passed out and hit his head. Prior to falling, he had felt fatigued, dizzy and had palpitations. He did not seek treatment at that time. Since then, he he has had several more falls, all precipitated by feeling like his heart was fluttering, dizzy, and off balance like he is walking on a boat. With these falls, there were no traumas and he did not hit his head or lose consciousness. Upon speaking to patient, it seems that these falls have been ongoing on the occasion for several years, but of been occurring more frequently over the past 3 weeks, which is caused some concern. In ED, bradycardic with HR in 50s, hypertensive. Labs significant for Hgb 13.2 (stable), PT 18.3, INR 1.8, mag 1.3, AST 68, ALT 87, TSH 9.69. Spine CT, head CT, chest CT, CT a/p all unremarkable. Principal Diagnosis Frequent falls, bradycardia Discharge Exam The patient is awake, alert and oriented 3, well developed and well nourished, normocephalic and atraumatic, lying in bed and in no acute distress. HEENT--PERRL, EOMI, mucous membranes and oropharynx mildly dry Neck--supple. No JVD. No bruits. Thyroid normal, trachea midline, no adenopathy. Heart--normal S1 and S2. No murmurs, rubs or gallops. Lungs--clear bilaterally, no respiratory distress, no accessory muscle use. Abdomen--normal bowel sounds and soft. Mild epigastric and left sided abdominal pain Extremities--no cyanosis or clubbing. No edema. Dermatologic--normal skin turgor, normal color, no abnormal lymph nodes, no rash. Neurologic--cranial nerves II through XII grossly intact. Rheumatologic--normal range of motion. Psychiatric--normal affect. Discharge Data Allergies Allergy/AdvReac Type Severity Reaction Status Date / Time tramadol Allergy Mild ANAPHYLAXIS Verified 08/03/21 18:47 Penicillins Allergy Unknown CAN'T Verified 08/03/21 18:47 REMEMBER niacin AdvReac Rash, Verified 08/03/21 18:47 Itching TETANUS Allergy Mild ANAPHYLAXIS Uncoded 08/03/21 18:47 Consultations 08/03/21 19:41 ED Decision to Admit Stat 08/03/21 22:29 Consult Cardiology Routine Ordered Studies 08/03/21 16:56 CT abd pelvis IV con only Stat CT chest diagnostic w con Stat CT lumbar spine w con Stat CT thoracic spine w con Stat 08/03/21 16:57 CT cervical spine wo con Stat CT head/brain wo con Stat Hospital Course (1) Multiple falls: Frequent falls: Most likely related to vertigo from previous head trauma causing fistula of the left ear which was not repaired at the time of the injury and 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 This leads to frequent vertigo, imbalance and then frequent falls. Patient lives at home alone and is not open to placement in a facility Will give him a rolling walker upon discharge (2) First degree AV block: - Seen on previous EKGs over the past year, HR 40-50s here. Wore an event monitor in August 2020 and had episodes of suinus bradycardia then with HR to 20- 30s. - Has been evaluated by cardiology (3) Type 2 diabetes mellitus: - Hold metformin. - Accuchecks ACHS with SSI. - A1c in AM. (4) Elevated LFTs: - AST 68, ALT 87, ALT only slightly elevated from labs drawn last November. - Anaplasmosis, Lyme negative. Patient has been amiodarone since last August. - Continue to follow on AM labs. (5) Hypomagnesemia: resolved (6) HTN, goal below 140/90: - Holding HCTZ given low magnesium; continue lisinopril. Add Amlodipine 10 mg daily (7) Paroxysmal atrial fibrillation: - On Coumadin for this as well as mechanical aortic valve with INR goal 2.0-3.0 per most recent cardiology note (1.8 today). - Continue amiodarone 200 mg daily, continue metoprolol but will reduce dose to 50 mg tomorrow AM given bradycardia. (8) Cardiomyopathy: - Echocardiogram from February 2021: LVEF 40% to 45% with mild global hypokinesis, septal motion consistent with bundle branch block, and prosthetic aortic valve with acceptable transvalvular gradient/velocity. (9) S/P aortic valve replacement: - Coumadin 5mg daily with INR goal 2.0-3.0, 1.8 today. (10) Acquired hypothyroidism: - Continue levothyroxine 50 mcg daily. - TSH 9.69, free T4 0.70. (11) GERD without esophagitis: - Takes omeprazole only PRN; holding for now due to low mag, would recommend using Pepcid in future to avoid low magnesium. - likely d/c in the next 24 hrs - SCDs, warfarin for VTE ppx. - Full Code. Total Time Total Time Spent Total Time Spent (In Minutes): 35 Discharge Plan Discharge Items Patient Disposition: Home - Self-Care Reason For Visit: MULTIPLE FALLS Discharge Diagnosis: falls, arrythmia Activity: Resume your previous activity Non-emergency contact: Primary Care Provider Call non-emergency contact if: you have any medication questions Follow-up/Referrals: Jeanette Ring DO [Primary Care Provider] - Diet: Regular Addtl Attending Provider Instructions: as we talked about, make sure you ambulate with your walker. Also make sure you get the life alert bracelet since you live alone, but do not want to go to a facility Pending Studies at Discharge: No Stand-Alone Forms: My [facility], Smoking Cessation Medications and DC Order Prescriptions: New metoprolol succinate 50 mg Tablet Extended Release 24 Hr 50 mg PO DAILY 30 Days Qty: 30 RF: 0 amlodipine [Norvasc] 5 mg Tablet 10 mg PO QAM 30 Days Qty: 60 RF: 0 Continued amiodarone 200 mg tablet 200 mg PO DAILY Qty: 90 RF: 3 metformin 1,000 mg tablet 1,000 mg PO BIDM Qty: 180 RF: 3 atorvastatin 40 mg tablet 40 mg PO DAILY Qty: 90 RF: 3 omeprazole 20 mg capsule,delayed release(DR/EC) 20 mg PO QAM Qty: 90 RF: 3 triamterene-hydrochlorothiazid 37.5-25 mg capsule 1 cap PO DAILY Qty: 90 RF: 3 albuterol sulfate 90 mcg/actuation HFA aerosol inhaler 2 puff inhalation Q6H PRN (Reason: shortness of breath or wheezing) RF: 0 levothyroxine 50 mcg tablet 50 mcg PO QAM RF: 0 desonide 0.05 % cream 1 applic topical BID RF: 0 nitroglycerin 0.4 mg tablet, sublingual 0.4 mg sublingual Q5M PRN (Reason: chest pain) RF: 0 acetaminophen 500 mg tablet 1,000 mg PO Q6H PRN (Reason: fever or pain) RF: 0 magnesium chloride 64 mg tablet,delayed release (DR/EC) 64 mg PO BID RF: 0 colchicine 0.6 mg capsule 0.6 mg PO BID PRN (Reason: GOUT SYMPTOMS) RF: 0 lisinopril 10 mg tablet 10 mg PO DAILY Qty: 90 RF: 3 warfarin 5 mg tablet 5 mg PO QPM RF: 0 Discontinued metoprolol succinate 100 mg tablet extended release 24 hr 100 mg PO DAILY Qty: 90 RF: 3 Discharge Orders: Discharge Order (Routine); Ordered 08/06/21 Ordered By: Chaz Miner/Other Patient Handouts: Managing Type 2 Diabetes Admission Data Admit Date/Time: 08/03/21 19:57 Attending Provider: Chaz Barrios Admit Provider: Ramy Schofield Primary Care Provider: Jeanette Ring Other Providers: Ramy Schofield ; Jasmeet Alaniz Other Interventions: Discharge Summary Assessment (RN) Last Done: 08/06/21 11:16 Coding Level of Care Code D/C DAY MANAGEMENT >30 MINS Diagnoses Multiple falls R29.6 First degree AV block I44.0 Type 2 diabetes mellitus E11.9 Elevated LFTs R79.89 Hypomagnesemia E83.42 HTN, goal below 140/90 I10 Paroxysmal atrial fibrillation I48.0 Cardiomyopathy I42.9 S/P aortic valve replacement Z95.2 Acquired hypothyroidism E03.9 GERD without esophagitis K21.9 Time Spent (min) 35
[2021-08-08 15:11] LABS: Babesia microti DNA Not Detected (Not Detected)
--- NOTE | 2021-08-09 08:07 | Coding Query ---
CODING QUERY To promote full compliance with coding requirements relating to patient care, provider participation is requested in all cases of [employer] uncertainty. Please assist us with the question(s) below: Coding Question(s): Pt admitted with vertigo, prior history of head injury/trauma. Cardiology consult "consider Meniere's disease; bradycardia did not contribute to fall". Please document, if known or suspected, the etiology of the vertigo as the cause of repeat falls. Thank you ! Ubaldo Salcido [facility] Physician's Response(s): Principal Diagnosis: "that condition established after study, to be chiefly responsible for occasioning the admission of the patient to the hospital for care." Co-Existing Principal Diagnosis: "when two or more diagnoses equally meet the criteria for principal diagnosis as determined by the circumstances of admission, diagnostic work up, and/or therapy provided, and the Alphabetic Index, Tabular List, or another coding guideline does not provide sequencing direction, any one of the diagnoses may be sequenced first." "When the physician has documented what appears to be a current diagnosis in the body of the record, but has not included the diagnosis in the final diagnostic statement, the physician should be asked whether the diagnosis should be added." (Source [facility] 2 QTR90. p3-4) NEIL
== END 2021-08-06 11:50 | disposition home or self-care (01) | DRG 149 ==
LOC: ED 16:23 → 2S 19:57 → SUATTDRO 19:57 → 2S 21:50